=== PATIENT | male | born 1965 | race Caucasian/White ===

== ENCOUNTER 2017-05-08 19:03 | Emergency (ER) | payer MEDICARE ==
[~2017-05-08] VITALS: Ht 170.2 cm; Wt 55.3 kg
[~2017-05-08 19:03] MED LIST: AMITRIPTYLINE H25 M2 PO; ATIVAN0.5 MG PO; CARAFATE 1 GM TA1 G1 PO; CYMBALTA60 MG PO; DIFLUCAN200 MG PO; DILAUDID 2 MG TA2 MG PO; ERYTHROMYCIN250 M1 PO; ERYTHROMYCIN250 MG PO; FENTANYL PA25 MCG/HR TRANSDERM; FLAGYL500 MG PO; GAS-X125 MG PO; METOCLOPRAMID5 MG/ML PO; MIRALAX17 GM PO; NORVASC5 MG PO; OMEPRAZOLE20 M2 PO; ONDANSETRON HCL4 M2 PO; OXYBUTYNIN 5 MG5 M2 PO; OXYCODONE HCL 55 MG PO; OXYCONTIN40 MG PO; PANCREAZE 10,51 EACH PO; PHENADOZ12.5 MG RC; PHENERGAN 25 MG25 M1 PO; PHENERGAN12.5 M2 RECTAL; POTASSIUM 25 M25 MEQ PO; PROTONIX40 M1 PO; SENNA PLUS TAB1 EACH PO; SUPER ENZYME C1 EACH PO; TRAMADOL 50 MG50 MG PO; TRANSDERM-SCO1 PATC1 TD; TRANSDERM-SCO1 PATC1 TRANSDERM; TYLENOL325 MG PO; VENLAFAXIN37.5 MG/1 PO; ZOFRAN ODT4 MG PO; ZOLOFT50 MG PO; ZOLPIDEM TARTRA10 MG PO; [UNRECOGNIZED DRUG - OTHER] PO
[2017-05-08] MEDS ORDERED: OXYCONTIN20 M1 PO (19:13)
[2017-05-08 20:30] VITALS: BP 134/67
[2017-11-03] MEDS ORDERED: OMEPRAZOLE40 MG PO (09:53)
[2017-11-03] MEDS ORDERED: ZANTAC 150MG T150 MG PO (09:55)
[2017-11-03] MEDS ORDERED: REMERON15 MG PO (09:55)
== END 2017-05-08 20:31 | disposition home or self-care (01) ==
LOC: M.ERS 19:03
DX: S93.401A Sprain of unspecified ligament of right ankle, initial encounter (principal); I10 Essential (primary) hypertension; Z88.8 Allergy status to other drugs, medicaments and biological substances; Z85.07 Personal history of malignant neoplasm of pancreas; W11.XXXA Fall on and from ladder, initial encounter; Y93.89 Activity, other specified; Y92.89 Other specified places as the place of occurrence of the external cause; Y99.8 Other external cause status

== ENCOUNTER 2017-07-29 17:59 | Emergency (ER) | payer MEDICARE ==
[~2017-07-29] VITALS: Ht 167.6 cm; Wt 51.3 kg
[~2017-07-29 17:59] MED LIST changes: +OXYCONTIN20 M1 PO
[2017-07-29] MEDS ORDERED: LEXAPRO20 MG PO (18:07)
[2017-07-29] MEDS ORDERED: CREON DR 12,001 EACH PO (18:07)
[2017-07-29] MEDS ORDERED: FLEXERIL PO (18:07)
[2017-07-29 18:52] VITALS: BP 107/73
[2017-11-03] MEDS ORDERED: OMEPRAZOLE40 MG PO (09:53)
[2017-11-03] MEDS ORDERED: REMERON15 MG PO (09:55)
[2017-11-03] MEDS ORDERED: ZANTAC 150MG T150 MG PO (09:55)
== END 2017-07-29 18:53 | disposition home or self-care (01) ==
LOC: M.ERS 17:59
DX: S51.811A Laceration without foreign body of right forearm, initial encounter (principal); I10 Essential (primary) hypertension; Z86.19 Personal history of other infectious and parasitic diseases; Z85.07 Personal history of malignant neoplasm of pancreas; Z88.5 Allergy status to narcotic agent; Z88.8 Allergy status to other drugs, medicaments and biological substances; W22.8XXA Striking against or struck by other objects, initial encounter; Y93.89 Activity, other specified; Y92.89 Other specified places as the place of occurrence of the external cause; Y99.8 Other external cause status

== ENCOUNTER 2017-08-20 09:15 | Inpatient (IN) | payer MEDICARE ==
[~2017-08-20] VITALS: Ht 167.6 cm; Wt 51.3 kg
[~2017-08-20 09:15] MED LIST changes: +CREON DR 12,001 EACH PO; +FLEXERIL PO; +LEXAPRO20 MG PO
[2017-08-20 09:22] VITALS: BP 150/89
[2017-08-20] MEDS ORDERED: CALCIUM CIT 201 EACH PO (09:26)
[2017-08-20] MEDS ORDERED: POTASSIUM GLUCO99 M1 PO (09:27)
[2017-08-20 09:32] LABS: URINE BILIRUBIN NEGATIVE (Negative); URINE BLOOD NEGATIVE (Negative); URINE CLARITY CLEAR; URINE COLOR YELLOW; URINE GLUCOSE-RANDOM NEGATIVE (Negative); URINE KETONES 1+ (Negative); URINE LEUKOCYTES-REFLEX NEGATIVE (Negative); URINE NITRITE-REFLEX NEGATIVE (Negative); URINE PROTEIN TRACE (Negative); URINE UROBILINOGEN 0.2 E.U./dl (0.2-1.0)
[2017-08-20 09:37] LABS: HEMATOCRIT 41.4 % (42.0-52.0); MCH 30.4 pg (26.0-34.0); MCHC 33.7 g/dL (28.0-37.0); NUCLEATED RBCS 0 /100WBC; PLATELET COUNT* 152 thou/uL (150-400); RBC 4.61 mil/uL (4.50-6.00); WBC 10.4 thou/uL (4.0-11.0)
[2017-08-20 09:41] LABS: ANION GAP 13 mmol/L (7-16); BUN 11 mg/dL (7-18); CALCIUM 9.1 mg/dL (8.5-10.1); CHLORIDE 99 mmol/L (98-107); CO2 26 mmol/L (21-32); CREATININE 1.3 mg/dL (0.6-1.3); GLUCOSE 140 mg/dL (70-99); POTASSIUM 3.7 mmol/L (3.5-5.1); SODIUM 138 mmol/L (136-145)
[2017-08-20 09:48] LABS: ALBUMIN 3.8 g/dL (3.4-5.0); ALKALINE PHOSPHATASE 249 U/L (46-116); LIPASE 31 U/L (73-393); SGOT 347 U/L (15-37); SGPT 166 U/L (30-65); TOTAL BILIRUBIN 1.3 mg/dL (<0.1-1.0); TOTAL PROTEIN 8.3 g/dL (6.4-8.2); TROPONIN-I LEVEL <0.06 ng/mL (<0.06)
[2017-08-20 10:05] LABS: ABSOLUTE LYMPHOCYTES 0.9 thou/uL (0.8-5.3); ABSOLUTE MONOCYTES 0.1 thou/uL (0.0-1.2); ABSOLUTE NEUTROPHILS 9.4 thou/uL (1.6-8.1)
[2017-08-20 10:06] LABS: MACROCYTES Occasional; PLATELET ESTIMATE ADEQUATE
[2017-08-20 13:03] VITALS: BP 145/99
[2017-08-20 13:59] VITALS: BP 145/99
--- NOTE | 2017-08-20 16:14 | EKG ---
[place] [address] ELECTROCARDIOGRAM REPORT Name: PETER CARRILLO Room: [place] [address] ADM IN [facility].#: [id number] Admission: 08/20/17 Attend Phys: Checo Zaman, Discharge: Date of : 69 Report #: [id number] THIS REPORT FOR: //name// [facility] ED Test Date: 2017-08-20 Test Time: 09:27:22 Pat Name: PETER CARRILLO Department: Room: Gender: Home Care Administrator: Rayna CAMARA : 1965 Requested By: Festus Hendricks Order Number: [id number] MD: Jhoan Giron Measurements Intervals [place] Rate: 86 P: -77 WV: 100 QRS: 88 QRSD: 92 T: 55 QT: 381 QTc: 456 Interpretive Statements Ectopic atrial rhythm Short WV interval Compared to ECG 12/22/2015 19:47:03 Left ventricular hypertrophy no longer present Electronically Signed On 08-20-2017 16:14:45 CDT by Jhoan Giron [email or web address] <ELECTRONICALLY SIGNED> By: Jhoan Giron MD, [facility] 08/20/17 1614 0927 6 Jhoan Giron MD, [facility] /EPI
[2017-08-20 20:14] VITALS: BP 132/93
[2017-08-21] VITALS: BP 150/79
[2017-08-21 04:00] VITALS: BP 145/85
[2017-08-21 05:05] LABS: HEMATOCRIT 37.1 % (42.0-52.0); HEMOGLOBIN 12.5 gm/dL (14.0-18.0); MCH 30.1 pg (26.0-34.0); MCHC 33.7 g/dL (28.0-37.0); MCV 89.3 fL (80.0-100.0); MPV 9.4 fl. (7.2-11.1); RBC 4.15 mil/uL (4.50-6.00); RDW-CV 16.1 % (10.5-14.5); WBC 9.3 thou/uL (4.0-11.0)
[2017-08-21 05:57] LABS: ALBUMIN 2.9 g/dL (3.4-5.0); CALCIUM 8.1 mg/dL (8.5-10.1); MAGNESIUM 1.8 mg/dL (1.8-2.4); POTASSIUM 4.1 mmol/L (3.5-5.1); TOTAL BILIRUBIN 1.1 mg/dL (<0.1-1.0); TOTAL PROTEIN 6.4 g/dL (6.4-8.2)
[2017-08-21 08:00] VITALS: BP 138/93
[2017-08-21 12:55] VITALS: BP 160/107
[2017-08-21 16:34] VITALS: BP 170/109
[2017-08-21 20:30] VITALS: BP 161/97
[2017-08-22] VITALS: BP 135/97
[2017-08-22 04:05] VITALS: BP 144/81
[2017-08-22 08:00] VITALS: BP 145/91
[2017-08-22 11:38] VITALS: BP 157/94
[2017-08-22 16:09] LABS: HEPATITIS B SURFACE AG Negative (Negative)
[2017-08-22 16:34] VITALS: BP 165/90
[2017-08-22 20:00] VITALS: BP 159/89
[2017-08-23] VITALS: BP 145/84
[2017-08-23 04:00] VITALS: BP 148/83
[2017-08-23 07:30] VITALS: BP 139/79
[2017-08-23] MEDS ORDERED: LISINOPRIL20 MG PO (11:05)
[2017-08-23] MEDS ORDERED: CIPRO500 MG PO (11:05)
[2017-08-23 11:51] VITALS: BP 147/92
[2017-08-23 12:53] VITALS: BP 147/92
[2017-11-03] MEDS ORDERED: OMEPRAZOLE40 MG PO (09:53)
[2017-11-03] MEDS ORDERED: ZANTAC 150MG T150 MG PO (09:55)
[2017-11-03] MEDS ORDERED: REMERON15 MG PO (09:55)
== END 2017-08-23 14:22 | disposition home or self-care (01) | DRG 372 ==
LOC: M.ERS 09:15 → M.TBA-ER 12:07 → M.2W 12:07
PROVIDERS: Emergency Medicine Emergency Medical Services; ADMIT Family Medicine
DX: A04.9 Bacterial intestinal infection, unspecified (principal); E44.1 Mild protein-calorie malnutrition; F17.210 Nicotine dependence, cigarettes, uncomplicated; I10 Essential (primary) hypertension; B19.20 Unspecified viral hepatitis C without hepatic coma; F41.9 Anxiety disorder, unspecified; R74.0 Nonspecific elevation of levels of transaminase and lactic acid dehydrogenase [LDH]; Z86.14 Personal history of Methicillin resistant Staphylococcus aureus infection; Z98.52 Vasectomy status; Z85.07 Personal history of malignant neoplasm of pancreas; Z79.899 Other long term (current) drug therapy; Z88.8 Allergy status to other drugs, medicaments and biological substances

== ENCOUNTER → 2017-09-23 | Outpatient (CLI) | payer MEDICARE ==
[~2017-09-23] MED LIST changes: +ASPIRIN325 PO; +CALCIUM CIT 201 EACH PO; +CIPRO500 MG PO; +LISINOPRIL20 MG PO; +OMEPRAZOLE40 MG PO; +OXYCODONE HCL10 MG PO; +POTASSIUM GLUCO99 M1 PO; +REGLAN 10 MG TA10 MG PO; +REMERON15 MG PO; +TAMIFLU30 MG PO; +VANCO 1 GR1 GM/250 M IV; +ZANTAC 150MG T150 MG PO
== END ==
LOC: M.NUC 09-20 07:30
DX: R10.9 Unspecified abdominal pain (principal); R11.2 Nausea with vomiting, unspecified; Z98.890 Other specified postprocedural states

== ENCOUNTER 2017-10-13 12:52 | Inpatient (IN) | payer MEDICARE ==
[~2017-10-13] VITALS: Ht 167.6 cm; Wt 53.1 kg
[~2017-10-13 12:52] MED LIST changes: -ASPIRIN325 PO; -OMEPRAZOLE40 MG PO; -OXYCODONE HCL10 MG PO; -REGLAN 10 MG TA10 MG PO; -REMERON15 MG PO; -TAMIFLU30 MG PO; -VANCO 1 GR1 GM/250 M IV; -ZANTAC 150MG T150 MG PO
[2017-10-13 13:14] VITALS: BP 163/89
[2017-10-13 13:31] LABS: ABSOLUTE BASOPHILS 0.1 thou/uL (0.0-0.2); ABSOLUTE EOSINOPHILS 0.2 thou/uL (0.0-0.7); ABSOLUTE LYMPHOCYTES 2.1 thou/uL (0.8-5.3); ABSOLUTE MONOCYTES 0.7 thou/uL (0.0-1.2); ABSOLUTE NEUTROPHILS 5.2 thou/uL (1.6-8.1); BASOPHILS 0.7 %; EOSINOPHILS 1.9 %; HEMATOCRIT 34.5 % (42.0-52.0); HEMOGLOBIN 11.6 gm/dL (14.0-18.0); LYMPHOCYTES 25.7 %; MCH 30.3 pg (26.0-34.0); MCHC 33.6 g/dL (28.0-37.0); MCV 90.1 fL (80.0-100.0); MONOCYTES 8.2 %; MPV 8.7 fl. (7.2-11.1); NUCLEATED RBCS 0 /100WBC; PLATELET COUNT* 197 thou/uL (150-400); POLYS 63.5 %; RBC 3.84 mil/uL (4.50-6.00); RDW-CV 15.3 % (10.5-14.5); WBC 8.2 thou/uL (4.0-11.0)
[2017-10-13 13:38] LABS: CALCIUM 8.5 mg/dL (8.5-10.1); CREATININE 1.2 mg/dL (0.6-1.3); POTASSIUM 4.2 mmol/L (3.5-5.1)
[2017-10-13 13:42] LABS: ALBUMIN 3.6 g/dL (3.4-5.0); TOTAL BILIRUBIN 0.3 mg/dL (<0.1-1.0); TOTAL PROTEIN 7.6 g/dL (6.4-8.2)
--- NOTE | 2017-10-13 14:00 | NUR ---
CONSCIOUS SEDATION FOR REDUCTION OF FRACTURE/DISLOCATION TO LEFT LEG. SEE PAPER DOCUMENTATION
--- NOTE | 2017-10-13 15:30 | NUR ---
CONSCIOUS SEDATION FOR REDUCTION OF FRACTURE/DISLOCATION TO LEFT LEG. SEE PAPER DOCUMENTATION
--- NOTE | 2017-10-13 17:37 | NUR ---
SEE PAPERCHARTING FOR VITALS
[2017-10-13 17:38] VITALS: BP 187/105
--- NOTE | 2017-10-13 18:04 | NUR ---
PATIENT ARRIVED ON THE UNIT AT 1745. ALERT AND ORIENTED X4. ADMISSION ASSESSMENT COMPLETED AND CHARTED. VSS ON ROOM AIR. PATIENT IS IN A LOT OF PAIN AND STATED THAT FENTANYL AND MORPHINE HAVE NOT HELPED THE PAIN. NO COMPLAINTS OF NAUSEA OR SOA. FLUIDS INFUSING FROM ED, WILL CHECK ORDERS TO START A NEW BAG. PATIENT AND ASKED FOR PHYSICIAN TO ADD HOME PAIN MEDICATION, OXYCONTIN, TO ALLEVIATE PAIN. WILL SEND A PAGE. CALL LIGHT WITHIN REACH, NURSING WILL CONTINUE TO MONITOR.
[2017-10-13 18:24] VITALS: BP 153/100
[2017-10-13 20:00] VITALS: BP 165/98
--- NOTE | 2017-10-14 04:35 | NUR ---
PATIENT REMAINS ALERT AND ORIENTED X4 THROUGHOUT SHIFT. VITAL SIGNS STABLE ON ROOM AIR. IV PATENT IN THE LEFT UPPER ARM INFUSING AT 100 ML/HR PER ORDERS. MAINTAINED NPO STATUS SINCE MIDNIGHT. PAIN MANAGED WITH PO AND IV PAIN MEDICATION. DENIES NAUSEA. RESTING COMFORTABLY THROUGHOUT THE NIGHT. PATIENT ENCOURAGED TO ELEVATE LEG THROUGHOUT SHIFT. USING URINAL. MAINTAINING BEDREST. REPOSITIONING SELF IN BED. HOURLY ROUNDING COMPLETE. NURSING WILL CONTINUE TO MONITOR.
--- NOTE | 2017-10-14 04:49 | NUR ---
LORAZEPAM WAS ON PATIENT MEDICATION LIST. NURSING SPOKE WITH PATIENT ABOUT ALLERGY. PATIENT STATED HE HAS HAD AN ALLERGIC REACTION IN THE PAST TO IV LORAZEPAM AND WOULD PREFER TO HOLD PO LORAZEPAM.
[2017-10-14 05:26] LABS: APTT 29.6 Seconds (25.0-31.3); INR 1.2; PROTIME 11.7 Seconds (9.20-11.50)
[2017-10-14 06:38] VITALS: BP 138/98
[2017-10-14 11:43] VITALS: BP 129/83
--- NOTE | 2017-10-14 14:00 | NUR ---
PT.HAD SURGERY THIS AM. DROWSY. ,RAMON, AT BEDSIDE. SHE ANSWERED MOST OF THE QUESTIONS. SHE SAID THEY HAVE 6 KIDS BUT 3 LIVE AT HOME WITH THEM. AGES-4,6,AND 16. THEY ARE ACTUALLY LIVING WITH PT.'S PARENTS AT THIS TIME, THEY ARE REMODELING THEIR HOME. THE HOUSE HAS 4 STEPS TO ENTER. THEY ARE STAYING IN A BEDROOM IN THE BASEMENT WHERE HE WILL NEED TO GO DOWN 12 STAIRS. THERE IS NO BATHROOM ON THAT FLOOR. DISCUSSED POSSIBILTY OF HIM STAYING ON MAIN FLOOR. HE DOES NOT USE ANY DME. HE DOES HAVE A PAIR OF CRUTCHES. RAMON BABYSITS IN THE HOME BUT ONLY HAS ONE BABY AT THIS TIME. PT.HAS HX OF PANCREATIC CANCER IN 2013 AND HAS BEEN IN REMISSION FOR 1 1/2 YEARS. DISCUSSED STARTING THERAPY PROBABLY TOMORROW. HE WILL BE NON WT.BEARING. TOLD PT.AND WE WOULD TALK ABOUT DISCHARGE PLANNING AFTER HE HAS SEVERAL THERAPY SESSIONS.
[2017-10-14 16:33] VITALS: BP 115/72
--- NOTE | 2017-10-14 17:25 | NUR ---
ALERT AND ORIENTED X4. IV IS PATENT AND INFUSING. PAIN IS BEING MANAGED WITH PO AND IV PAIN MEDICATION. DENIES NAUSEA. NWB STATUS HAS BEEN MAINTAINED. LLE ELEVATED AT ALL TIMES WHILE IN BED. EXTERNAL FIXATOR IN PLACE. EKG TAKEN THIS AFTERNOON THAT SHOWED ACUTE MA WITH ST ELEVATION. RN TOOK EKG OVER TO THE ER AND SHOWED IT TO THE ER DOCTOR. WHO THEN CONSULTED WITH DR. SHIPLEY IN CARDIOLOGY WHO STATED THAT IT WAS SHOWING BENIGN EARLY REPOLARIZATION AND DID NOT NEED TO BE MONITORED AT THIS TIME. NURSE SENT DR. ARLIN MURCIA TO BE AWARE OF WHAT OCCURED. PATIENT DENIES CHEST PAIN AND SOB. VSS ON ROOM AIR. CONTINUOUS PULSE OX IN PLACE. HOURLY ROUNDS HAVE BEEN MAINTAINED SINCE ARRIVING BACK TO UNIT. CALL LIGHT IS WITHIN REACH. NURSING WILL CONTINUE TO MONITOR.
--- NOTE | 2017-10-14 17:46 | EKG ---
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: : 1965 Requested By: Brian House Order Number: [id number] Gomez MD: Jhoan Giron Measurements Intervals [place] Rate: 81 P: 59 NH: 136 QRS: 59 QRSD: 95 T: 64 QT: 485 QTc: 563 Interpretive Statements Sinus rhythm nonspecific st changes Prolonged QT interval Compared to ECG 08/20/2017 09:27:22 Prolonged QT interval now present Ectopic atrial rhythm no longer present Short NH interval no longer present Electronically Signed On 10-14-2017 17:46:52 CDT by Jhoan Giron [email or web address] <ELECTRONICALLY SIGNED> By: Jhoan Giron MD, [facility] 10/14/17 1746 1617 1617 Jhoan Giron MD, [facility] /EPI
--- NOTE | 2017-10-14 17:48 | EKG ---
[place] [address] ELECTROCARDIOGRAM REPORT Name: PETER CARRILLO Room: [address] ADM IN .R.#: [id number] Admission: 10/13/17 Attend Phys: Brian House MD Discharge: Date of : 69 Report #: [id number] THIS REPORT FOR: //name// [facility] Test Date: 2017-10-14 Test Time: 16:21:36 Pat Name: PETER CARRILLO Department: Room: [address] Gender: M [place]: : 1965 Requested By: Brian House Order Number: [id number] Gomez MD: Jhoan Giron Measurements Intervals [place] Rate: 82 P: 77 [place]: 142 QRS: 63 QRSD: 91 T: 67 QT: 485 QTc: 567 Interpretive Statements Sinus rhythm with short pr interval Probable left atrial enlargement nonspecific st changes Prolonged QT interval Electronically Signed On 10-14-2017 17:48:08 CDT by Jhoan Giron [email or web address] <ELECTRONICALLY SIGNED> By: Jhoan Giron MD, [facility] 10/14/17 1748 1621 1621 Jhoan Giron MD, [facility] /EPI
[2017-10-14 20:00] VITALS: BP 131/86
[2017-10-14 23:59] VITALS: BP 116/68
--- NOTE | 2017-10-15 04:21 | NUR ---
PATIENT HAS REMAINED ALERT AND ORIENTED X 4 THROUGHOUT THE SHIFT AND RESTING QUIETLY ON HOURLY ROUNDS. PATIENT REPORTING MUCH IMPROVED PAIN MANAGEMENT TONIGHT WITH ORAL AND IV MEDS PROVIDED. SEE E-MAR. EXTERNAL FIXATOR LLE INTACT. NOTED MOD AMOUNT PINK BLEED THROUGH TO GAUZE WRAP. PAD TO ELEVATED PILLOW TO MONITOR. PEDAL PULSES PRESENT AND TOES REMAIN WARM AND MOBILE WITH SENSATION INTACT.NWB STATUS MAINTAINED. PATIENT TURNING SELF IN BED. VITAL SIGNS STABLE. CONTINUE TO MONITOR.
[2017-10-15 04:29] VITALS: BP 100/64
[2017-10-15 07:45] VITALS: BP 113/77
--- NOTE | 2017-10-15 15:26 | NUR ---
PER THERAPY, PT.DID WELL AND DID STAIRS. HE IS GOOD TO GO FROM THEIR STANDPOINT. POSSIBLY TOMORROW. PT. WILL NEED A FWW FOR HOME USE. RECEIVED OK FROM VITO/YESI PEPE. ORDER FAXED TO HER AT [phone]. GAVE ORDER TO ANGELICA/Moon. SHE WILL HAVE THERAPIST DISPENSE A FWW IN AM IF PT.IS DISCHARGED. INFORMED PT.AND . DISCUSSED HOME HEALTH. THEY DECLINED. SAID PT.HAS APPT.WITH ON WEDNESDAY. PT.IS GOING TO STAY IN A BEDROOM ON MAIN LEVEL OF PARENTS HOME.
[2017-10-15 15:38] VITALS: BP 113/77
[2017-10-15 15:41] VITALS: BP 120/78
--- NOTE | 2017-10-15 17:26 | NUR ---
ALERT AND ORIENTED X4. UP WITH ASSIST X1 WITH WALKER AND GAIT BELT. NWB MAINTAINED THROUGHOUT SHIFT. PAIN BEING MANAGED WITH PO AND IV MEDICATION. DENIES NAUSEA. IV IS PATENT AND SALINE LOCKED. ATTENDED PHYSICAL THERAPY THIS EVENING. TOLERATING DIET. VSS ON ROOM AIR. HOURLY ROUNDS HAVE BEEN MAINTAINED THROUGHOUT SHIFT. CALL LIGHT IS WITHIN REACH. NURSING WILL CONTINUE TO MONITOR.
[2017-10-15] MEDS ORDERED: REGLAN 10 MG TA10 MG PO (18:16)
[2017-10-15 20:00] VITALS: BP 109/80
[2017-10-16 00:30] VITALS: BP 124/84
[2017-10-16 04:43] VITALS: BP 127/86
[2017-10-16 04:46] LABS: HEMATOCRIT 25.7 % (42.0-52.0); MCH 30.8 pg (26.0-34.0); MCHC 34.1 g/dL (28.0-37.0); MCV 90.4 fL (80.0-100.0); MPV 9.1 fl. (7.2-11.1); RBC 2.85 mil/uL (4.50-6.00); RDW-CV 15.7 % (10.5-14.5); WBC 5.9 thou/uL (4.0-11.0)
[2017-10-16 04:49] LABS: HEMOGLOBIN 8.8 gm/dL (14.0-18.0)
--- NOTE | 2017-10-16 05:19 | NUR ---
PATIENT HAS REMAINED ALERT AND ORIENTED X 4 THROUGHOUT THE SHIFT AND RESTING QUIETLY ON HOURLY ROUNDS. UP TO BR WITH GAIT BELT AND WALKER, CGA. PATIENT ABLE TO MAINTAIN NWB STATUS LLE WITH STEADY AND SAFE GAIT/TECHNIQUE. VOIDING ADEQUATELY. BM OVERNIGHT. CONTINUES TO UTILIZE BOTH ORAL AND IV PAIN MEDICATION, BUT, ACHIEVING VERY GOOD PAIN MANAGEMENT. SEEPAGE OF PINK DRAINAGE AT PROXIMAL END OF LLE EXTERNAL FIXATOR. LLE ELEVATED WITH 2 PILLOWS. VITAL SIGNS STABLE. CONTINUE TO MONITOR.
[2017-10-16 05:25] LABS: ANION GAP < 0 mmol/L (7-16); BUN 8 mg/dL (7-18); CALCIUM 8.5 mg/dL (8.5-10.1); CHLORIDE 102 mmol/L (98-107); CO2 34 mmol/L (21-32); GLUCOSE 115 mg/dL (70-99); MAGNESIUM 1.8 mg/dL (1.8-2.4); POTASSIUM 4.7 mmol/L (3.5-5.1); SODIUM 135 mmol/L (136-145)
[2017-10-16 09:33] VITALS: BP 140/98
[2017-10-16 15:44] VITALS: BP 137/88
--- NOTE | 2017-10-16 18:13 | NUR ---
ASSUMED CARE OF PATIENT AFTER MORNING REPORT AT APPROX 0720. ALERT AND ORIENTED X4. ASSESSMENT COMPLETED AND CHARTED. VSS ON ROOM AIR. PATIENT HAS COMPLAINTS OF NAUSEA AND PAIN. NAUSEA MANAGED WITH IV MEDICATION. PAIN MEDICATIN SWITCHED TO ORAL ONLY PER DR MAGALLANES. UPON EXAMINATION THIS NURSE NOTICED THAT THE WRONG HOME PAIN MEDICATION WAS ON THE MAY, CALLED DR MAGALLANES AND THIS HAS BEEN FIXED. PATIENTS DRESSING REMOVED, WOUNDS AND PINS CLEANED, REDRESSED WITH VASELINE GAUZE, ABD, AND GAUZE WRAP PER ORDERS. HOURLY ROUNDS HAVE BEEN MAINTAINED, CALL LIGHT IS WITHIN REACH, NURSING WILL CONTINUE TO MONITOR.
[2017-10-17] VITALS: BP 136/87
[2017-10-17 03:44] VITALS: BP 125/77
--- NOTE | 2017-10-17 05:50 | NUR ---
UP WITH STAND BY ASSIST TO BATHROOM WITH WALKER AND GAIT BELT. REMAINS NONWEIGHTBEARING TO LEFT LOWER EXTREMITY. LEFT TOES WARM AND PINK WITH GOOD CAPILLARY REFILL. EXTERNAL FIXATION DEVICE REMAINS INTACT ON LEFT LOWER LEG. LEFT LEG ELEVATED ON PILLOW. PATIENT USING PO PAIN MEDICATION TO HELP WITH PAIN. CALL LIGHT WITHIN REACH.
[2017-10-17 10:06] VITALS: BP 113/77
[2017-10-17] MEDS ORDERED: OXYCODONE HCL10 MG PO (15:28)
--- NOTE | 2017-10-17 17:07 | NUR ---
ASSUMED CARE OF PATIENT AFTER MORNING REPORT AT APPROX 0720. ALERT AND ORIENTED X4. ASSESSMENT COMPLETED AND CHARTED. VSS ON ROOM AIR. PAIN HAS BEEN MANAGED WITH ORAL PAIN MEDICATION. NO COMPLAINTS OF NAUSEA OR SOA THIS SHIFT. PATIENTS DRESSING REMOVED, PINS CLEANED, VASEINE AND XEROFORM GAUZE CHANGED OUT, WRAPPED WITH ROLLED GAUZE. THIS NURSE EDUCATED PATIENTS SPOUSE AND HAD HER PARTICIPATE IN DRESSING CHANGE SO SHE CAN CONTINUE THESE CARES AT HOME. PATIENT GIVEN WALKER AT DISCHARGE. PATIENT DISCHARGED AT 1655, ALL PERSONAL BELONGINGS, DISCHARGE INSTRUCTIONS AND PRECRIPTIONS SENT WITH PATIENT.
[2017-11-03] MEDS ORDERED: OMEPRAZOLE40 MG PO (09:53)
[2017-11-03] MEDS ORDERED: REMERON15 MG PO (09:55)
[2017-11-03] MEDS ORDERED: ZANTAC 150MG T150 MG PO (09:55)
--- NOTE | 2017-11-09 11:04 | OP ---
[address] [address] OPERATIVE REPORT Name: PETER CARRILLO Room: [address] IN .R.#: [id number] Admission: 10/13/17 Attend Phys: Brian House MD Discharge: 10/17/17 Date of : 69 Report #: [id number] THIS REPORT FOR: //name// CC: Constance House PREOPERATIVE DIAGNOSIS: Left tibial pilon fracture, comminuted, closed and displaced with distal fibular fracture, closed and displaced. POSTOPERATIVE DIAGNOSIS: Left tibial pilon fracture, comminuted, closed and displaced with distal fibular fracture, closed and displaced. PROCEDURE: 1. External fixation of left comminuted and displaced tibial pilon fracture with distal fibular fracture. 2. Physician directed fluoroscopy less than 1 hour. SURGEON: Brian Sharma DO DATASTAGE DEVELOPER: Hesham Horowitz DO ANESTHESIA: General. ANTIBIOTICS: Ancef IV preoperatively. BLOOD LOSS: 5 mL. FLUIDS: 850 mL of lactated Ringer's. COMPLICATIONS: None. SPECIMENS: None. DRAINS: None. CONDITION OF PATIENT: Stable to PACU. IMPLANTS: [place] delta frame external fixation, two pins within the tibia and one pin within the calcaneus. INDICATIONS FOR PROCEDURE: The patient is a 52-year-old male. He fell off of a ladder sustaining a pilon fracture. My partner, Dr. Mcdonald closed reduced this in the Emergency Department and contacted me in regards to care for this patient. I had a long conversation with him and his today regarding the recommendation for external fixation and that this is a very significant injury that likely will lead to decreased function. 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 Ever since his whipple surgery he [address] [place] [address] OPERATIVE REPORT Name: PETER CARRILLO Room: [address] IN [facility].#: [id number] Admission: 10/13/17 Attend Phys: Brian House MD Discharge: 10/17/17 Date of : 69 Report #: [id number] cannot work more than a day or two in a row without being significantly sick I discussed with them there will be quite a long time before he will be able to get back to this type of work and that he may never return to that type of work due to the nature of this injury, it is potentially limb threatening and could ultimately lead to amputation if there becomes wound complications, infection, malunions or nonunions. I informed them that his tobacco use significantly increases his risks above baseline for all complications. Especially infection, wound issues, malunion, nonunion, need for further surgery including amputation. I went over with him the risks and complications involved with external fixation today as well as the plan of conversion of external fixation to operative fixation with the possibility that this may never be able to be operatively fixated with internal fixation and may require alf external fixation. After addressing any question they had, they acknowledged and accepted those risks, stated that they understood how they were presented and appreciated my time and detailed explanation of them. We obtained his verbal and written consent to proceed. DESCRIPTION OF PROCEDURE: I marked the left lower extremity in the presence of the operative team members and then he was taken back to the operative suite where a briefing was performed indicating correct patient, procedure, site and antibiotics were given and implants needed were present. All team members agreed. He was given general anesthetic and then transferred over to the operative table in the supine position, well-padded and secured. A well-padded tourniquet was placed proximally on the left lower extremity and at no point in time was this insufflated. The left lower extremity was sterilely prepped and draped in standard fashion and timeout performed indicating correct patient, procedure, site, antibiotics and that implants were present and sterile. All team members agreed. It should be noted that upon taking down the splint, he had significant fracture blisters. These were along the anterior and medial with the medial being quite significant extending up along the anterior where they were significant as well. These were hemorrhagic fracture blisters, overall stable. We brought in the C-arm to dominick where our fracture site ended and made sure that we would be placing our external fixation sufficiently proximally now, so that we should be able to avoid cross contamination with internal fixation. We made incisions just medial to the crest and then placed two pins just medial to the crest. We first predrilled and then placed the pins, confirmed that they were in appropriate position and length on both AP and lateral images and saved those. We then turned our attention to the heel. We were able to avoid the blisters and placed our calcaneal pin by making an incision medially and then the pin was advanced laterally, made a dawna on the skin prior to the pin coming out the skin laterally, saved images showing appropriate position of the pin. At this point in time, we then assembled our delta frame with bars both medial and lateral and clamps. We pulled traction and lined up our fracture in AP and lateral planes and checked on multiple images and confirmed that we were out to length. Once we had confirmed this, we then tightened down all the clamps, final tightened them, [place] [address] OPERATIVE REPORT Name: PETER CARRILLO Room: [address] IN [facility]#: [id number] Admission: 10/13/17 Attend Phys: Brian House MD Discharge: 10/17/17 Date of : 69 Report #: [id number] by lifting up the leg and then obtaining images with the leg being held up, our fracture was out to length. We restored length, alignment and rotation. We sterilely dressed with Xeroform gauze for the blisters as well as over the pin sites. Pin site care will begin with daily care per orders. We performed a debriefing where we confirmed the procedure, blood loss and that all counts were correct and final. All team members agreed. He was successfully extubated and transferred off the operative table and taken to PACU in stable condition. POSTOPERATIVE COURSE AND EVALUATION: I spoke with his , answered any questions she had, she thanked me for time and efforts. He was resting in PACU, neurovascularly intact distally in that extremity. Compartments overall were soft and appropriately tender for his injury. Dressing clean and intact. He will be admitted, nonweightbearing, pin site care to begin. We will also be obtaining a CT scan now that he is within the external fixator. We will be seeing him in clinic in followup to check skin and look for surgical readiness. I am leaving town today and not returning until next week. I have personally discussed this case with my partners who will be covering for me. I am immediately available by phone. <ELECTRONICALLY SIGNED> By: Brian Sharma DO 11/09/17 1104 1810 0048Jadeepa Sharma DO /nt
== END 2017-10-17 16:55 | disposition home or self-care (01) | DRG 493 ==
LOC: M.ERS 12:52 → M.TBA-ER 15:10 → M.ORTHSURG 15:10
PROVIDERS: Family Medicine; ADMIT Internal Medicine
DX: S82.872A Displaced pilon fracture of left tibia, initial encounter for closed fracture (principal); E44.0 Moderate protein-calorie malnutrition; Z68.1 Body mass index [BMI] 19.9 or less, adult; S82.452A Displaced comminuted fracture of shaft of left fibula, initial encounter for closed fracture; S70.212A Abrasion, left hip, initial encounter; F17.210 Nicotine dependence, cigarettes, uncomplicated; Z85.07 Personal history of malignant neoplasm of pancreas; F32.9 Major depressive disorder, single episode, unspecified; G89.29 Other chronic pain; I10 Essential (primary) hypertension; W11.XXXA Fall on and from ladder, initial encounter; Z79.2 Long term (current) use of antibiotics; Z86.14 Personal history of Methicillin resistant Staphylococcus aureus infection; Z79.82 Long term (current) use of aspirin; Z79.899 Other long term (current) drug therapy; Z88.6 Allergy status to analgesic agent; Z98.52 Vasectomy status; Z86.19 Personal history of other infectious and parasitic diseases; Y93.89 Activity, other specified; Y92.89 Other specified places as the place of occurrence of the external cause; Y99.8 Other external cause status; Z80.6 Family history of leukemia; Z80.8 Family history of malignant neoplasm of other organs or systems

== ENCOUNTER → 2017-11-02 | Outpatient (CLI) | payer MEDICARE ==
[~2017-11-02] MED LIST changes: +ASPIRIN325 PO; +OMEPRAZOLE40 MG PO; +OXYCODONE HCL10 MG PO; +REGLAN 10 MG TA10 MG PO; +REMERON15 MG PO; +TAMIFLU30 MG PO; +VANCO 1 GR1 GM/250 M IV; +ZANTAC 150MG T150 MG PO
[2017-11-02 12:57] LABS: ABSOLUTE EOSINOPHILS 0.2 thou/uL (0.0-0.7); ABSOLUTE LYMPHOCYTES 1.5 thou/uL (0.8-5.3); ABSOLUTE MONOCYTES 0.6 thou/uL (0.0-1.2); ABSOLUTE NEUTROPHILS 5.4 thou/uL (1.6-8.1); BASOPHILS 0.6 %; EOSINOPHILS 2.5 %; HEMATOCRIT 31.8 % (42.0-52.0); HEMOGLOBIN 10.4 gm/dL (14.0-18.0); LYMPHOCYTES 19.8 %; MCH 29.6 pg (26.0-34.0); MCHC 32.7 g/dL (28.0-37.0); MCV 90.3 fL (80.0-100.0); MONOCYTES 7.5 %; MPV 7.8 fl. (7.2-11.1); NUCLEATED RBCS 0 /100WBC; PLATELET COUNT* 296 thou/uL (150-400); POLYS 69.6 %; RBC 3.52 mil/uL (4.50-6.00); RDW-CV 15.3 % (10.5-14.5); WBC 7.8 thou/uL (4.0-11.0)
[2017-11-02 21:02] LABS: CALCIUM 8.6 mg/dL (8.5-10.1); CREATININE 1.1 mg/dL (0.6-1.3); POTASSIUM 4.3 mmol/L (3.5-5.1); TOTAL BILIRUBIN 0.3 mg/dL (<0.1-1.0); TOTAL PROTEIN 7.4 g/dL (6.4-8.2)
[2017-11-02 21:07] LABS: eGFR IF AFRICAN AMERICAN 117 (>59)
[2017-11-03 10:12] LABS: PARATHYROID HORMONE 24 pg/mL (15-65)
== END ==
LOC: M.LAB 12:21
PROVIDERS: Orthopaedic Surgery
DX: S82.252D Displaced comminuted fracture of shaft of left tibia, subsequent encounter for closed fracture with routine healing (principal); I10 Essential (primary) hypertension; X58.XXXD Exposure to other specified factors, subsequent encounter; Z79.899 Other long term (current) drug therapy

== ENCOUNTER 2017-11-09 06:11 | Inpatient (IN) | payer MEDICARE ==
[~2017-11-09] VITALS: Ht 167.6 cm; Wt 53.1 kg
[~2017-11-09 06:11] MED LIST changes: -ASPIRIN325 PO; -TAMIFLU30 MG PO; -VANCO 1 GR1 GM/250 M IV
[2017-11-09 06:30] VITALS: BP 128/87
[2017-11-09 06:44] LABS: APTT 31.8 Seconds (25.0-31.3); PROTIME 10.7 Seconds (9.20-11.50)
[2017-11-09 11:04] LABS: HEMATOCRIT 26.5 % (42.0-52.0); HEMOGLOBIN 8.8 gm/dL (14.0-18.0); MCH 29.7 pg (26.0-34.0); MCHC 33.1 g/dL (28.0-37.0); MCV 89.8 fL (80.0-100.0); MPV 7.9 fl. (7.2-11.1); RBC 2.95 mil/uL (4.50-6.00); RDW-CV 15.2 % (10.5-14.5); WBC 6.3 thou/uL (4.0-11.0)
[2017-11-09 11:09] LABS: CALCIUM 8.3 mg/dL (8.5-10.1); POTASSIUM 4.6 mmol/L (3.5-5.1)
[2017-11-09 11:15] VITALS: BP 110/74
[2017-11-09 16:00] VITALS: BP 105/68
--- NOTE | 2017-11-09 16:05 | NUR ---
PATIENT ADMITTED FROM PACU TO ROOM 110. ALERT AND ORIENTED. PATIENT GIVEN PRN PERCOCET FOR LEFT ANKLE PAIN, OXY IR FOR BREAKTHROUGH. IV SL, SCHED VANC TO INFUSE THIS EVENING. CAPNO IN PLACE, 02 SAT 96% RA. CAST NOTED TO LEFT LEG, ELEVATED ON PILLOWS. FALL RISK PROTOCOL IN PLACE. CALL LIGHT WITHIN REACH.
[2017-11-09 19:30] VITALS: BP 129/86
[2017-11-10 00:14] VITALS: BP 109/73
[2017-11-10 04:18] VITALS: BP 116/77
--- NOTE | 2017-11-10 05:02 | NUR ---
ASSESSMENT COMPLETE. PT SLEPT MOST OF THE NIGHT. PT GIVEN PRN PAIN MEDICATION NEEDED. PT HAS CAPNO OVERNIGHT WITH 2L PER NC. PT USES URINAL NEEDED. PT GIVEN IV VANC SCHEDULED. PT HAS IV, SALINE LOCKED AT THIS TIME. JAMI CRAIG AND SCD TO RIGHT LEG. SEE ASSESSMENT AND VITALS FOR OTHER DETAILS. CALL LIGHT WITHIN REACH, WILL CONTINUE PLAN OF CARE
[2017-11-10 07:30] VITALS: BP 131/69
[2017-11-10 11:20] VITALS: BP 138/87
--- NOTE | 2017-11-10 12:31 | CON ---
[address] [address] CONSULTATION Name: PETER CARRILLO Room: [address] IN M.R.#: [id number] Admission: 11/09/17 Attend Phys: Lee Haynes Discharge: Date of : 69 Report #: [id number] THIS REPORT FOR: //name// CC: Constance Leslie DATE OF SERVICE: 11/09/2017 INFECTIOUS DISEASE CONSULTATION ATTENDING PHYSICIAN: Brian Sharma DO. REASON FOR EVALUATION: Suspected surgical site infection, left ankle fracture with stabilization via external fixator, specifically bilateral. There is both medial and lateral involvement of increasing inflammation with purulence. HISTORY OF PRESENT ILLNESS: Chart reviewed, the patient examined. This is a 52-year-old with history of pancreatic cancer. He has been through extensive treatment for that; apparently is, at this point, cancer free. He is on no additional chemotherapy. He had sustained a complex distal left lower extremity fracture of both the tibia and fibula and has required internal fixators roughly 3 weeks ago. Postoperatively, he had been seen on a regular basis. He was noted to have some increasing inflammation. He was started on antibiotics; however, on return, he was found to have no purulence, both medial and lateral, at the calcaneal pin site. This was felt to be tissue infection. He underwent operative removal and has been hospitalized for ongoing treatment including parenteral antimicrobial therapy. He does have pain associated with it. It is not clear if he has had significant recent fevers. No gastrointestinal-related complaints nor has there been issue with significant anorexia. He was empirically started on vancomycin. ALLERGIES: LISTED TO ATIVAN WELL VICODIN. CURRENT MEDICATIONS: Include oxycodone, lorazepam, cyclobenzaprine, vancomycin, aspirin, mirtazapine, pantoprazole, lisinopril, citalopram and cholecalciferol. PAST MEDICAL HISTORY: As described above, pancreatic cancer diagnosed in 2013, underwent operative procedure with a Whipple approach; history of hypertension; history of hepatitis C; has got issues with gastric obstructions. He has had anxiety and depression as well. SOCIAL HISTORY: He smokes a pack a day, [id number] total history of cigarettes. Uses marijuana at times. No ethanol. FAMILY HISTORY: [place] [address] CONSULTATION Name: PETER CARRILLO Room: [address]#: [id number] Admission: 11/09/17 Attend Phys: Lee Haynes Discharge: Date of : 69 Report #: [id number] REVIEW OF SYSTEMS: As above. Denies significant pulmonary-related complaints. PHYSICAL EXAMINATION: GENERAL: He appears chronically ill, undernourished. He is pleasant and cooperative. He has in nmoh-ug-yuvtvmil distress at this point. He is not encephalopathic. VITAL SIGNS: Temperature 97.7, pulse 79, respirations 14 and blood pressure 110/74. SKIN: Warm, dry. No rashes. HEENT: Otherwise, unremarkable. NECK: Supple. LUNGS: Show clear breath sounds. HEART: Regular. I do not appreciate any murmur. ABDOMEN: Soft, nontender and nondistended. EXTREMITIES: Left lower extremity has a cast in place to below the knee. Toes are warm. GENITOURINARY: Deferred. RECTAL: Deferred. LABORATORY DATA: Sed rate of 95. Venous Doppler of lower extremities showed no evidence of deep venous thrombosis. CBC: White count of 6.3, H and H 8.8 and 26.5 and platelets of 174,000. Electrolytes: Sodium 135, potassium 4.6, chloride 101, bicarbonate is 31 and BUN and creatinine 13 and 1.0. ASSESSMENT AND PLAN: Complicated left distal lower extremity fracture with instrumentation and placement of external fixator, appears to be secondarily infected at this point. I agree with empiric antimicrobial Bactrim including coverage for Staph and strep, which are typically unlikely pathogen in this setting. has been removed. I did discuss with Dr. Sharma. We will plan on roughly 6 weeks of therapy and the presumptive acute osteomyelitis and see how he does clinically. Dr. Sharma did confirm that there is some instability related to the fracture site as well at this point. Thank you. We will follow. <ELECTRONICALLY SIGNED> By: Paulino Monson MD 11/10/17 1231 1250 [id number] Monson MD /nt
[2017-11-10 15:49] VITALS: BP 133/78
--- NOTE | 2017-11-10 16:12 | NUR ---
PATIENT GIVEN PRN MORPHINE AND PERCOCET THIS SHIFT FOR PAIN, GOOD RELIEF NOTED. IV SL, SCHED VANC TO INFUSE PER MAR ORDERS THIS EVENING. VANC TROUGH TO BE DRAWN AT 1830. PATIENT AWARE OF LAB WORK. UP TO BSC THIS AM, BM NOTED. PATIENT USING URINAL, VOIDING ADEQUATE AMOUNTS. PICC LINE ORDERED PER ID, LINE BEING PLACED AT BEDSIDE AT THIS TIME.
--- NOTE | 2017-11-10 16:53 | NUR ---
RIGHT BASDILIC VESSEL ACCESSED FOR 4 ANGOLAN PICC. LINE PRE-TRIMMED TO 37 CM AND ADVANCED TO THE ZERO RYLIE WITH NO RESISTANCE MET. UPPER ARM CIRCUMFERENCE ABOVE INSERTION SITE= 9 1/2". SHERLOCK AND 3CG CONFIRMATION OF TIP TERMINATION AT THE CAVO-ATRIAL JUNCTION. GOOD BRISK BLOOD RETURN, LINE FLUSHED WITH EASE. STYLET REMOVED, INSERTION SITE DRESSED, REPORT GIVEN TO VITO HALEY.
[2017-11-11] VITALS: BP 132/80
[2017-11-11 05:14] LABS: ABSOLUTE BASOPHILS 0.1 thou/uL (0.0-0.2); ABSOLUTE EOSINOPHILS 0.1 thou/uL (0.0-0.7); ABSOLUTE LYMPHOCYTES 1.9 thou/uL (0.8-5.3); ABSOLUTE MONOCYTES 0.7 thou/uL (0.0-1.2); ABSOLUTE NEUTROPHILS 3.4 thou/uL (1.6-8.1); BASOPHILS 0.9 %; EOSINOPHILS 2.1 %; HEMOGLOBIN 8.9 gm/dL (14.0-18.0); LYMPHOCYTES 30.6 %; MCH 29.5 pg (26.0-34.0); MCHC 32.9 g/dL (28.0-37.0); MCV 89.7 fL (80.0-100.0); MONOCYTES 11.8 %; MPV 8.9 fl. (7.2-11.1); NUCLEATED RBCS 0 /100WBC; PLATELET COUNT* 195 thou/uL (150-400); POLYS 54.6 %; RBC 3.01 mil/uL (4.50-6.00); RDW-CV 15.1 % (10.5-14.5); WBC 6.2 thou/uL (4.0-11.0)
[2017-11-11 05:43] LABS: ALBUMIN 2.6 g/dL (3.4-5.0); CALCIUM 8.3 mg/dL (8.5-10.1); POTASSIUM 4.1 mmol/L (3.5-5.1); TOTAL BILIRUBIN 0.3 mg/dL (<0.1-1.0); TOTAL PROTEIN 6.8 g/dL (6.4-8.2)
--- NOTE | 2017-11-11 05:46 | NUR ---
ASSESSMENT COMPLETE. VANC TROUGH 17, VANC DOSE CONTINUED. PT HAS PICC IN RIGHT UPPER ARM, DRAWS AND FLUSHES WITHOUT DIFFICULTY. PT USES URINAL NEEDED. CAST TO LEFT ANKLE, ELEVATED WITH PILLOW. PT HAS JAMI HOSE AND SCD ON RIGHT LEG. SEE ASSESSMENT AND VITALS FOR OTHER DETAILS. CALL LIGHT WITHIN REACH, WILL CONTINUE TO MONITOR
[2017-11-11 08:20] VITALS: BP 132/87
--- NOTE | 2017-11-11 10:00 | NUR ---
FAXED FACE SHEET,[facility] L[phone] TO CHECK FOR IV BENEFITS AT HOME. PT WILL NEED WEEKS OF IVAB PER . CX ARE PENDING.
[2017-11-11 10:36] VITALS: BP 132/87
[2017-11-11] MEDS ORDERED: ASPIRIN325 PO (10:45)
[2017-11-11] MEDS ORDERED: ZOFRAN ODT4 MG PO (10:46)
--- NOTE | 2017-11-11 13:53 | NUR ---
PT.KNOWN FROM PREVIOUS ADMISSION. HE LIVES WITH HIS AND SHE IS VERY SUPPORTIVE. HE HAS A WALKER AND CAN MAINTAIN NWB ON L LEG. HE IS MOSTLY INDEPENDENT AT HOME. HE WILL NEED TO GO HOME ON IVAB X 6 WKS FOR OSTEO. DISCUSSED WITH HIM AND . THEY ARE AGREEABLE TO DO HOME INFUSION Q 12 HRS. HE SAID LONG THEY CAN MAKE PAYMENTS TO [facility] AND BE ABLE TO FILL OUT FIANANCIAL ASSIST PAPERS. INFORMED DR. SINHA. FAXED ORDER FROM TO [facility] AND CALLED TO INFORM THEM HE IS BEING DISCHARGED TODAY.
[2017-11-11] MEDS ORDERED: VANCO 1 GR1 GM/250 M IV (14:14)
--- NOTE | 2017-11-11 15:06 | NUR ---
FAXED KOBY/YARELI DISCHARGE IVAB ORDERS FROM ,ALLERGIES,H&P,OP REPORT. THEY WILL DELIVER MEDICATION THIS PM TO PT.'S HOME. SPOKE WITH YARELI. DISCUSSED CAPS FOR END OF PICC LINE THAT ARE CHANGED EACH INFUSION AND HAVE ALCOHOL IN THE END OF THEM. YARELI SAID THESE WILL COME OUT WITH HIS ORDER. NO NEED TO ORDER SPECIFICALLY. CALLED AND SPOKE WITH [facility]. SHE SAID SHE COULD NOT HAVE A NURSE TO PTS HOME [facility] BUT BETWEEN 8-10 IN THE AM. FAXED HER FACE SHEET,ORDERS, IV ORDERS,ALLERIES, FACE TO FACE FORM,H&P AND OP REPORT TO [phone]. PT.WILL NEED TO STAY FOR 7PM IVAB. INFORMED PT.AND AND SUDHA ACOSTA.
--- NOTE | 2017-11-11 19:02 | NUR ---
PATIENT RESTING IN BED. PATIENT IS DISCHARGING THIS EVENING AFTER VANCOMYCIN INFUSION COMPLETE. DISCHARGE PAPERS REVIEWED AND SIGNED. PRESCRIPTIONS AND INFORMATION SHEETS GIVEN. IV REMOVED. PICC LINE IN PLACE FOR HOME IV ANTIBIOTIC INFUSION. HOME HEALTH SET UP FOR TEACHING IN AM. PATIENT DENIES ANY NEEDS AT THIS TIME. CALL LIGHT WITHIN REACH. WILL CONTINUE TO MONITOR.
--- NOTE | 2017-11-11 20:00 | NUR ---
PT AO X4, DENIES PAIN OR PROBLEMS, FAMILY MEMBER AT BEDSIDE PT IS FINISHING IV ABX DOSE. INFUSION COMPLETED AND PT DISCHARGING HOME PER WHEELCHAIR WITH NURSING STAFF ESCORTING OUT. FAMILY MEMBER ACCOMPANYING WITH BELONGINGS AND DISCHARGE INSTRUCTIONS.
--- NOTE | 2017-11-24 11:49 | CON ---
[facility] [address] [place] [address] CONSULTATION Name: PETER CARRILLO Room: [address] IN M.R.#: [id number] Admission: 11/09/17 Attend Phys: Lee Haynes Discharge: 11/11/17 Date of : 69 Report #: [id number] THIS REPORT FOR: //name// CC: Constance Leslie INFECTIOUS DISEASE CONSULTATION FOLLOWUP HISTORY OF PRESENT ILLNESS: The patient returns in followup hospitalization evaluation for chronic calcaneal osteomyelitis, left side. The patient is seen in conjunction with Dr. Sharma, Orthopedic Surgery. He returns today having completed roughly 2 weeks of parenteral therapy, had culture-proven MRSA and had a previous complex tib-fib fracture on the left that was stabilized with external fixator. His pins were removed and had purulence in both the medial and lateral aspect of the calcaneus. He generally had been feeling fairly well. He denies significant amount of localizing pain at the site. He has had a cast on his leg. He has not had systemic illness either. His appetite is good. Review of the labs from last week, his sed rate was in the 40s and had some mild anemia. ASSESSMENT AND PLAN: Calcaneal osteomyelitis, left side. We will continue vancomycin as prescribed, weekly labs. We will see him back in 2 weeks' time. Did discuss in detail with Dr. Sharma. <ELECTRONICALLY SIGNED> By: Paulino Monson MD 11/24/17 1149 1718 0002Joseph Twan Monson MD /nt
--- NOTE | 2017-12-10 15:26 | OP ---
[address] [address] OPERATIVE REPORT Name: PETER CARRILLO Room: [address] IN M.R.#: [id number] Admission: 11/09/17 Attend Phys: Lee Haynes Discharge: 11/11/17 Date of : 69 Report #: [id number] THIS REPORT FOR: //name// CC: Constance Leslie PREOPERATIVE DIAGNOSIS: Infected calcaneal pin sites with cellulitis tracking proximally. POSTOPERATIVE DIAGNOSIS: Infected calcaneal pin sites with cellulitis tracking proximally. PROCEDURES: 1. Removal of external fixation of the left lower extremity under anesthesia. 2. Irrigation and debridement down to bone and including sequestrectomy of calcaneal osteomyelitis. 3. Application of short-leg cast. 4. Physician-directed fluoroscopy less than 1 hour. SURGEON: Brian Sharma DO. VALUE STREAM MANAGER: Johnny Pool DO. ANESTHESIA: General. ANTIBIOTICS: Vancomycin IV. FLUIDS: 800 of LR. COMPLICATIONS: None. DRAINS: None. SPECIMENS: Multiple specimens taken from both medial and lateral draining sites and also deep tissue specimen and included bone. CONDITION OF THE PATIENT: Stable to PACU. INDICATIONS FOR PROCEDURE: The patient is a 52-year-old male who presented to [facility] today for operative fixation of his left lower extremity. We had a long conversation in our visit last week regarding the plan for surgery today. He had just finished antibiotics that had been given to him by my partner for a draining lateral pin site. I had him discontinue those. He never had any drainage from the medial site. Today, stated he was having drainage from the medial site and when I was expressing this, it was purulence. The lateral pin site is also draining now active purulence and there is [facility] [address] [place] [address] OPERATIVE REPORT Name: PETER CARRILLO Room: [address]#: [id number] Admission: 11/09/17 Attend Phys: Lee Haynes Discharge: 11/11/17 Date of : 69 Report #: [id number] cellulitis in the extremity that does track proximally up into the area where the incisions would need to be made for operative fixation or for distal pin placement. I do not appreciate any abscess or fluctuance in this area, but it is painful for him and the cellulitis tracks up to several centimeters proximal to the joint line, involving the area of previous fracture blisters. We had quite an extensive conversation talking about our different options. At this point in time, due to the fact that he has an active infection in his calcaneus and tracking of the infection proximally to the area where incisions or pins will need to be placed, recommendation will be that today we take him to the operating room, remove the external fixation, perform an irrigation and debridement of his pin sites including down to the calcaneus, remove any infected bone from that pin tract, place him in a short-leg cast, get him admitted and likely an Infectious Disease consultation and will likely be requiring IV antibiotics. They understood this, thanked me for my time and detailed explanations of the process and they would like to proceed. I went over them the risks and complications associated with this plan for current nonoperative management in a short-leg cast application, included but not limited to infection and could continue to require long-term antibiotic therapy with a sequela of organ damage, C. difficile colitis resistance, hematopoietic dysfunction, etc., continued and/or worsening of pain, decreased function that could lead to loss of independent ambulation and ability to return to normal activities including any occupation, collapse of the fracture site and ultimately malunion, nonunion, need for further surgery for any reason that could include multiple surgeries for correction and ultimately lead to amputation that could be [id number] or above the knee, DVT, PE, CO, stroke, possible , anesthetic-related complications that would be discussed by the Anesthesia team prior to the surgery and there is also a possibility of risk and complications that would be addressed upon presentation. After addressing questions that they had, they acknowledged and accepted those risks and would like to proceed with the plan. He was complaining of some calf pain, and therefore, in the preoperative area, we performed an ultrasound to check for DVT; it was negative. DESCRIPTION OF PROCEDURE: I marked his left lower extremity in the presence of the operative team members and everyone agreed this was correct. He was then taken to the operative suite, where a briefing was performed indicating correct patient, procedure, site and antibiotics. All team members agreed. He was transferred over to the operating table in supine position, well-padded and secured. General anesthetic was administered. We sterilely prepped and draped the left lower extremity in standard fashion, including prepping in the external fixation so that we would not be prepping the leg, with no stability. A timeout was performed indicating correct patient, procedure, site and antibiotics; all team members agreed. We began by removing the external fixation, cut the pin medially and then pulled this over laterally significantly loose; and as the pin came [place], [place] [address] OPERATIVE REPORT Name: PETER CARRILLO Room: [facility] IN [facility]#: [id number] Admission: 11/09/17 Attend Phys: Lee Haynes Discharge: 11/11/17 Date of : 69 Report #: [id number] significant amount of purulence that followed. At this point in time, we turned our attention to I and D this. I removed any skin from around this area laterally. This did open up a bigger hole than what was originally there. Our debridement included down to bone and with sequestrectomy removing any infected bone. This bone and deep tissue cultures were sent for culture as well. We had also cultured the medial and lateral wounds for anaerobic and aerobic and Synthes off as well. He does have a history of Staph and he believes an MRSA infection from a port in the past. Once we had fully debrided this down, we then brought in C-arm imaging to see if there was any healing of this fracture site. He had some translation of the distal aspect had some mobility, but not as unstable as was when we first put the external fixator on, and his joint line overall looked congruent on the lateral. We irrigated the pin sites with 3 liters of normal saline from a cystoscopy tubing and gravity flow. Using separate instruments that were sterile and untouched from the back table previously, we were able to curette these out and irrigate the proximal pin sites as well and these looked overall clean. We debrided down any remaining scabbing from the blisters. There actually was good skin underneath. However, the areas of cellulitis tracking approximately from these pin sites made it difficult to tell if this was healed tissue underneath with normal redness or if this was redness from the tracking cellulitis. Again, no abscess was appreciated on examination, just extensive cellulitis tracking approximately from these pin sites. At that point in time, we then placed a stockinette, cut holes in the stockinette for pin sites, placed Adaptic, 4 x 4s and then overwrapped with a soft roll. I made sure that the heels and malleoli were well padded and then applied our short-leg cast. As the cast was hardening, we brought in C-arm and took multiple images showing that we had overall maintained our preoperative alignment. We the cast fully set, we then performed a debriefing, where we confirmed the procedure, blood loss. The specimens were being sent and all counts were correct and final. All team members agreed. He was extubated and transferred to PACU in stable condition. POSTOPERATIVE COURSE AND EVALUATION: I spoke with his , per his wishes, to let her know what had been found and the plan moving forward. She thanked me for my time and effort. I examined him in the PACU. He was resting comfortably, stable vital signs. Neurovascularly, he was intact distally at the toes. Pain was controlled. I personally contacted Dr. Monson with Infectious Disease regarding this patient's condition. He agreed with this treatment plan and avoiding any hardware at this time and he recommended that with the extensive infection, IV antibiotics would be recommended, especially due to the fact that he most likely has malabsorption with this history of Whipple and pancreatic cancer and he looks overall malnourished. I got some nutrition labs, which did show that his albumin was low. I have been telling him to do Boost shakes for the last couple of weeks now in order to try and get him to a near [address] [address] OPERATIVE REPORT Name: PETER CARRILLO Room: [address] DIS IN M.R.#: [id number] Admission: 11/09/17 Attend Phys: Lee Haynes Discharge: 11/11/17 Date of : 69 Report #: [id number] normal level. He says he is decreasing his smoking, as it is going to be critical that he stops this. It was discussed with him prior to surgery that if he does not stop smoking, his amputation rate is quite elevated above baseline. He will be admitted with all consultations in place. DVT prophylaxis will be with aspirin b.i.d. as directed. He is nonweightbearing on that extremity. Cast care instructions given to him. We will continue vancomycin IV per Dr. Monson's recommendation from our talk until cultures come back and these can be adjusted. <ELECTRONICALLY SIGNED> By: Chet Mcdonald DO 12/10/17 1526 1007 1130Brian Sharma DO /nt
== END 2017-11-11 20:00 | disposition home health service (06) | DRG 495 ==
LOC: M.TBA 06:11 → M.ORTHSURG 06:11 → M.PRE 06:48 → M.ORTHSURG 11:00 → M.PRE 11:05 → M.ORTHSURG 11-11 20:00
PROVIDERS: Internal Medicine; Orthopaedic Surgery; ADMIT Internal Medicine
DX: T84.623A Infection and inflammatory reaction due to internal fixation device of left tibia, initial encounter (principal); E43 Unspecified severe protein-calorie malnutrition; L03.116 Cellulitis of left lower limb; M86.8X7 Other osteomyelitis, ankle and foot; Z68.1 Body mass index [BMI] 19.9 or less, adult; B19.20 Unspecified viral hepatitis C without hepatic coma; I10 Essential (primary) hypertension; F32.9 Major depressive disorder, single episode, unspecified; F41.9 Anxiety disorder, unspecified; D64.9 Anemia, unspecified; G89.29 Other chronic pain; F17.210 Nicotine dependence, cigarettes, uncomplicated; Y83.8 Other surgical procedures as the cause of abnormal reaction of the patient, or of later complication, without mention of misadventure at the time of the procedure; Y92.89 Other specified places as the place of occurrence of the external cause; Z85.07 Personal history of malignant neoplasm of pancreas; Z79.82 Long term (current) use of aspirin; Z79.899 Other long term (current) drug therapy; Z88.8 Allergy status to other drugs, medicaments and biological substances; Z80.0 Family history of malignant neoplasm of digestive organs; Z80.6 Family history of leukemia

== ENCOUNTER 2017-11-24 16:39 | Observation (INO) | payer MEDICARE ==
[~2017-11-24] VITALS: Ht 170.2 cm; Wt 54.4 kg
[~2017-11-24 16:39] MED LIST changes: +ASPIRIN325 PO; +VANCO 1 GR1 GM/250 M IV
[2017-11-24 16:44] VITALS: BP 123/78
[2017-11-24] MEDS ORDERED: CARAFATE 1 GM TA1 G1 PO (16:53)
[2017-11-24 17:22] LABS: HEMATOCRIT 27.6 % (42.0-52.0); HEMOGLOBIN 9.1 gm/dL (14.0-18.0); MCH 29.6 pg (26.0-34.0); MCHC 32.8 g/dL (28.0-37.0); MPV 8.4 fl. (7.2-11.1); NUCLEATED RBCS 0 /100WBC; PLATELET COUNT* 183 thou/uL (150-400); RBC 3.07 mil/uL (4.50-6.00); RDW-CV 16.1 % (10.5-14.5); WBC 16.8 thou/uL (4.0-11.0)
[2017-11-24 17:29] LABS: PROTIME 10.7 Seconds (9.20-11.50)
[2017-11-24 17:32] LABS: ANION GAP 3 mmol/L (7-16); BUN 13 mg/dL (7-18); CHLORIDE 97 mmol/L (98-107); CO2 29 mmol/L (21-32); CREATININE 1.2 mg/dL (0.6-1.3); GLUCOSE 146 mg/dL (70-99); POTASSIUM 3.9 mmol/L (3.5-5.1); SODIUM 129 mmol/L (136-145)
[2017-11-24 17:38] LABS: ABSOLUTE EOSINOPHILS 0.2 thou/uL (0.0-0.7); ABSOLUTE LYMPHOCYTES 1.2 thou/uL (0.8-5.3); ABSOLUTE MONOCYTES 0.7 thou/uL (0.0-1.2); ABSOLUTE NEUTROPHILS 14.8 thou/uL (1.6-8.1)
[2017-11-24 17:39] LABS: PLATELET ESTIMATE ADEQUATE
[2017-11-24 17:40] LABS: ANISOCYTOSIS Occasional
[2017-11-24 17:42] LABS: ALBUMIN 2.6 g/dL (3.4-5.0); ALKALINE PHOSPHATASE 161 U/L (46-116); LIPASE 36 U/L (73-393); NT-PRO BRAIN NAT PEPTIDE 386 pg/mL (<300); SGOT 15 U/L (15-37); SGPT 18 U/L (30-65); TOTAL BILIRUBIN 0.3 mg/dL (<0.1-1.0); TOTAL PROTEIN 6.7 g/dL (6.4-8.2); TROPONIN-I LEVEL <0.06 ng/mL (<0.06)
[2017-11-24 18:28] VITALS: BP 122/75
[2017-11-24 18:32] LABS: URINE BILIRUBIN NEGATIVE (Negative); URINE BLOOD NEGATIVE (Negative); URINE CLARITY CLEAR; URINE COLOR YELLOW; URINE GLUCOSE-RANDOM NEGATIVE (Negative); URINE KETONES NEGATIVE (Negative); URINE LEUKOCYTES-REFLEX NEGATIVE (Negative); URINE NITRITE-REFLEX NEGATIVE (Negative); URINE PROTEIN NEGATIVE (Negative); URINE SPECIFIC GRAVITY 1.015 (1.005-1.030); URINE UROBILINOGEN 0.2 E.U./dl (0.2-1.0)
[2017-11-24 18:40] VITALS: BP 127/80
[2017-11-24 19:09] LABS: INFLUENZA A ANTIGEN None Detected (None Detect)
[2017-11-25 00:28] VITALS: BP 110/77
[2017-11-25 04:13] VITALS: BP 126/77
[2017-11-25 05:07] LABS: HEMATOCRIT 24.4 % (42.0-52.0); HEMOGLOBIN 8.2 gm/dL (14.0-18.0); MCH 30.2 pg (26.0-34.0); MCHC 33.4 g/dL (28.0-37.0); MCV 90.4 fL (80.0-100.0); MPV 8.9 fl. (7.2-11.1); RBC 2.7 mil/uL (4.50-6.00); RDW-CV 16.2 % (10.5-14.5); WBC 10.9 thou/uL (4.0-11.0)
--- NOTE | 2017-11-25 05:38 | NUR ---
PATIENT SLEPT PART OF THE NIGHT. PATIENT WAS GIVEN PAIN MEDICINE ONCE THIS SHIFT. IV FLUIDS WERE STARTED AT 100 ML/HR AND IV VANC GIVEN ORDERED. TAMIFLU STARTED FOR INFLUENZA B. PATIENT HAS BEEN AFEBRILE. WILL CONTINUE TO MONITOR.
[2017-11-25 05:41] LABS: ALBUMIN 2.3 g/dL (3.4-5.0); CALCIUM 7.7 mg/dL (8.5-10.1); MAGNESIUM 1.9 mg/dL (1.8-2.4); TOTAL BILIRUBIN 0.3 mg/dL (<0.1-1.0)
[2017-11-25 07:50] VITALS: BP 118/79
[2017-11-25] MEDS ORDERED: TAMIFLU30 MG PO (10:39)
[2017-11-25 15:17] VITALS: BP 118/79
[2017-11-25 15:33] VITALS: BP 118/79
--- NOTE | 2017-11-25 15:47 | NUR ---
SW met with pt and pt to complete initial assessment, introduce self, and SW role. Pt alert, oriented. Pt to dc home with today. Pt active with [facility] and [facility] for IV abx. SW faxed updated script to [facility] and information and dc orders to [facility]. Pt and pt did not have any other questions or dc needs.
--- NOTE | 2017-11-25 16:15 | NUR ---
PATIENT DISCHARGED TO HOME WITH HOME HEALTH. DISCHARGE PAPERS REVIEWED AND SIGNED. PRESCRIPTION AND INFORMATION SHEETS GIVEN. PICC LINE IN PLACE FOR IV ANTIBIOTICS. FLU SHOT ADMINISTERED ORDERED. PATIENT DENIES ANY FURTHER NEEDS. PATIENT TAKEN BY WHEELCHAIR TO EXIT. LEFT WITH .
--- NOTE | 2017-11-25 16:37 | EKG ---
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 : 1965 Requested By: Brian Johns Order Number: [id number] MD: Tono Soria Measurements Intervals [place] Rate: 92 P: 86 DE: 133 QRS: 73 QRSD: 90 T: 58 QT: 347 QTc: 430 Interpretive Statements Sinus rhythm Left ventricular hypertrophy Baseline wander in lead(s) V2,V4 Compared to ECG 10/14/2017 16:21:36 Left ventricular hypertrophy now present Short DE interval no longer present ST (T wave) deviation no longer present Prolonged QT interval no longer present Electronically Signed On 11-25-2017 16:36:54 CDT by Tono Soria [email or web address] <ELECTRONICALLY SIGNED> By: Tono Soria MD, FACC 11/25/17 1636 1651 1651 Tono Soria MD, FAC /EPI
--- NOTE | 2017-11-26 07:56 | CON ---
[address] [address] CONSULTATION Name: PETER CARRILLO Room: [address] Jason Perry#: [id number] Admission: 11/24/17 Attend Phys: Brian House MD Discharge: 11/25/17 Date of : 69 Report #: [id number] THIS REPORT FOR: //name// CC: Constance House DATE OF SERVICE: 11/25/2017 INFECTIOUS DISEASE CONSULTATION ATTENDING PHYSICIAN: Brian House M.D. REASON FOR EVALUATION: Febrile illness, positive influenza B antigen testing. HISTORY OF PRESENT ILLNESS: Chart reviewed, patient examined. This is a 52-year-old known to myself who was just seen recently, had been hospitalized subsequent to a probable deep infection involving his calcaneus and severe trauma, had external fixator, pin became infected, had culture proven MRSA. He has actually been on therapy for a couple of weeks of parenteral vancomycin. He was seen in the office, doing well; however, during the course of the following 24 hours, he was followed up in Oncology for his pancreatic cancer and was found to have fevers and referred for admission. Screening influenza study proved positive for influenza B, he was started on Oseltamivir. He has clinically improved. Denies any upper or lower respiratory tract signs or symptoms, no sore throat, no headache. He is eating well. He has defervesced. He denies any gastrointestinal-related complaints. ALLERGIES: LORAZEPAM AND HYDROCODONE. CURRENT MEDICATIONS: Include citalopram, pancrelipase, pantoprazole, cyclobenzaprine, sucralfate, enoxaparin, aspirin, famotidine, mirtazapine, metoclopramide, vancomycin, promethazine, p.r.n. analgesics, antiemetics, and Oseltamivir. PAST MEDICAL HISTORY: Above noted pancreatic cancer, post Whipple's in 2014, required a second surgery in 2016; hypertension; anxiety and depression; chronic pancreatitis; chronic pain syndrome; left ankle osteomyelitis. SOCIAL HISTORY: Former smoker. No ethanol. FAMILY HISTORY: Noncontributory. REVIEW OF SYSTEMS: As above. PHYSICAL EXAMINATION: GENERAL: He appears chronically ill, undernourished. [place] [address] CONSULTATION Name: PETER CARRILLO [address]#: [id number] Admission: 11/24/17 Attend Phys: Brian House MD Discharge: 11/25/17 Date of : 69 Report #: [id number] cooperative. He is not overtly distressed at this point. VITAL SIGNS: Temperature 97.5, pulse 73, respirations 20, blood pressure 118/79. SKIN: Warm, dry, no rashes. HEENT: Unremarkable. NECK: Supple. LUNGS: Clear to auscultation. HEART: Regular. I do not appreciate murmur. ABDOMEN: Soft, nontender, nondistended. ASSESSMENT: Influenza B. now on Tamiflu with no evidence of toxicity at this point. I do not think there is any evidence of secondary bacterial infection including pneumonitis. I think it is reasonable to discharge on the Tamiflu, encourage pushing fluids. We will continue the vancomycin as prescribed, need additional 4 weeks of treatment, had been working with Dr. Sharma. We will see him in clinic in a couple of weeks. <ELECTRONICALLY SIGNED> By: Paulino Monson MD 11/26/17 0756 1500 1850Jocharity Monson MD /nt
--- NOTE | 2017-12-09 11:50 | CON ---
[address] [address] CONSULTATION Name: PETER CARRILLO Room: [address] Jason Perry#: [id number] Admission: 11/24/17 Attend Phys: Brian House MD Discharge: 11/25/17 Date of : 69 Report #: [id number] THIS REPORT FOR: //name// CC: Constance House Seen in the outpatient therapy with Dr. Sharma, orthopedic surgeon. HISTORY OF PRESENT ILLNESS: He is here for followup of chronic osteomyelitis involving his calcaneus, site of previous external fixator pin site infection with isolation of MRSA. He is on parenteral therapy and has completed roughly 4 weeks of treatment. On questioning, he denies any particular associated pain. He has a complete offloading at this point. He has not been systemically ill. Denies any GI or pulmonary related complaints. His appetite has been fair. His weight has been generally stable. ASSESSMENT AND PLAN: Chronic osteomyelitis. At this point, would plan to extend at least 2 weeks of therapy, get weekly labs. He is utilizing vancomycin. We will plan on seeing him back with Dr. Sharma in 2 weeks. <ELECTRONICALLY SIGNED> By: Paulino Monson MD 12/09/17 1150 0854 1901Jocharity Monson MD /nt
== END 2017-11-25 16:15 | disposition home health service (06) ==
LOC: M.ERS 16:39 → M.3W 17:39 → M.TBA-ER 17:39 → M.3W 17:39
PROVIDERS: Family Medicine; ADMIT Internal Medicine
DX: A41.89 Other specified sepsis (principal); J10.1 Influenza due to other identified influenza virus with other respiratory manifestations; B19.20 Unspecified viral hepatitis C without hepatic coma; K31.84 Gastroparesis; F41.1 Generalized anxiety disorder; F32.9 Major depressive disorder, single episode, unspecified; G89.29 Other chronic pain; E87.1 Hypo-osmolality and hyponatremia; F11.20 Opioid dependence, uncomplicated; R50.9 Fever, unspecified; M54.5 Low back pain; I10 Essential (primary) hypertension; F41.9 Anxiety disorder, unspecified; M86.9 Osteomyelitis, unspecified; B95.62 Methicillin resistant Staphylococcus aureus infection as the cause of diseases classified elsewhere; F17.200 Nicotine dependence, unspecified, uncomplicated; Z98.890 Other specified postprocedural states; Z85.07 Personal history of malignant neoplasm of pancreas; Z23 Encounter for immunization

== ENCOUNTER 2018-03-13 16:53 | Emergency (ER) | payer MEDICARE ==
[~2018-03-13] VITALS: Ht 170.2 cm; Wt 52.0 kg
[~2018-03-13 16:53] MED LIST changes: +TAMIFLU30 MG PO
[2018-03-13] MEDS ORDERED: KEFLEX500 M1 PO (18:09)
[2018-03-13 18:39] VITALS: BP 120/77
== END 2018-03-13 18:40 | disposition home or self-care (01) ==
LOC: M.ERS 16:53
DX: T24.202A Burn of second degree of unspecified site of left lower limb, except ankle and foot, initial encounter (principal); T31.0 Burns involving less than 10% of body surface; I10 Essential (primary) hypertension; Z86.14 Personal history of Methicillin resistant Staphylococcus aureus infection; F41.9 Anxiety disorder, unspecified; F32.9 Major depressive disorder, single episode, unspecified; G89.29 Other chronic pain; Z88.8 Allergy status to other drugs, medicaments and biological substances; Z86.19 Personal history of other infectious and parasitic diseases; Z85.07 Personal history of malignant neoplasm of pancreas; X08.8XXA Exposure to other specified smoke, fire and flames, initial encounter; Y93.89 Activity, other specified; Y92.89 Other specified places as the place of occurrence of the external cause; Y99.8 Other external cause status

== ENCOUNTER 2018-08-14 09:40 | Emergency (ER) | payer MEDICARE ==
[~2018-08-14] VITALS: Ht 165.1 cm; Wt 54.0 kg
[~2018-08-14 09:40] MED LIST changes: +KEFLEX500 M1 PO
[2018-08-14 10:25] LABS: NUCLEATED RBCS 0 /100WBC; WBC 10.5 thou/uL (4.0-11.0)
[2018-08-14 10:26] LABS: HEMATOCRIT 37.7 % (42.0-52.0); HEMOGLOBIN 12.2 gm/dL (14.0-18.0); MCHC 32.3 g/dL (28.0-37.0); MCV 86.6 fL (80.0-100.0); MPV 9.6 fl. (7.2-11.1); PLATELET COUNT* 148 thou/uL (150-400); RBC 4.36 mil/uL (4.50-6.00)
[2018-08-14 10:32] LABS: ANION GAP 12 mmol/L (7-16); BUN 10 mg/dL (7-18); CALCIUM 9.4 mg/dL (8.5-10.1); CHLORIDE 103 mmol/L (98-107); CO2 26 mmol/L (21-32); CREATININE 1.2 mg/dL (0.6-1.3); GLUCOSE 150 mg/dL (70-99); POTASSIUM 4.8 mmol/L (3.5-5.1); SODIUM 141 mmol/L (136-145)
[2018-08-14 10:41] LABS: ALBUMIN 3.5 g/dL (3.4-5.0); ALKALINE PHOSPHATASE 132 U/L (46-116); LIPASE 19 U/L (73-393); SGOT 23 U/L (15-37); SGPT 24 U/L (30-65); TOTAL BILIRUBIN 0.7 mg/dL (<0.1-1.0); TOTAL PROTEIN 8.3 g/dL (6.4-8.2); TROPONIN-I LEVEL <0.06 ng/mL (<0.06)
[2018-08-14 11:53] LABS: ABSOLUTE BASOPHILS 0.1 thou/uL (0.0-0.2); ABSOLUTE LYMPHOCYTES 0.4 thou/uL (0.8-5.3); ABSOLUTE MONOCYTES 0.1 thou/uL (0.0-1.2); ABSOLUTE NEUTROPHILS 9.9 thou/uL (1.6-8.1); PLATELET ESTIMATE ADEQUATE
[2018-08-14 12:05] LABS: URINE BILIRUBIN NEGATIVE (Negative); URINE BLOOD NEGATIVE (Negative); URINE CLARITY CLEAR; URINE COLOR YELLOW; URINE GLUCOSE-RANDOM NEGATIVE (Negative); URINE KETONES TRACE (Negative); URINE LEUKOCYTES-REFLEX NEGATIVE (Negative); URINE NITRITE-REFLEX NEGATIVE (Negative); URINE PROTEIN NEGATIVE (Negative); URINE SPECIFIC GRAVITY <= 1.005 (1.005-1.030); URINE UROBILINOGEN 0.2 E.U./dl (0.2-1.0)
[2018-08-14] MEDS ORDERED: LEVAQUIN 750 M750 MG PO (12:15)
[2018-08-14] MEDS ORDERED: FLAGYL500 M1 PO (12:15)
[2018-08-14 13:05] VITALS: BP 164/93
--- NOTE | 2018-08-15 15:33 | EKG ---
[place] [address] ELECTROCARDIOGRAM REPORT Name: LROENAPETER Room: [facility]#: [id number] Admission: 08/14/18 Attend Phys: Discharge: 08/14/18 Date of : 69 Report #: [id number] THIS REPORT FOR: //name// [facility] ED Test Date: 2018-08-14 Test Time: 10:08:25 Pat Name: PETER CARRILLO Department: Room: Gender: Filer Finish: Rayna CAMARA : 1965 Requested By: Festus Hendricks Order Number: [id number] MD: Tono Soria Measurements Intervals [place] Rate: 82 P: 94 [place]: 133 QRS: 84 QRSD: 93 T: 58 QT: 367 QTc: 429 Interpretive Statements Sinus rhythm Right atrial enlargement possible Consider left ventricular hypertrophy Compared to ECG 11/24/2017 16:51:06 Atrial abnormality now present Electronically Signed On 08-15-2018 15:32:49 CDT by Tono Soria [email or web address] <ELECTRONICALLY SIGNED> By: Tono Soria MD, [facility] 08/15/18 1532 1008 1008 Tono Soria MD, FACC /EPI
== END 2018-08-14 13:05 | disposition home or self-care (01) ==
LOC: M.ERS 09:40
PROVIDERS: Emergency Medicine Emergency Medical Services
DX: K52.9 Noninfective gastroenteritis and colitis, unspecified (principal); I10 Essential (primary) hypertension; F41.9 Anxiety disorder, unspecified; F32.9 Major depressive disorder, single episode, unspecified; F17.200 Nicotine dependence, unspecified, uncomplicated; Z85.07 Personal history of malignant neoplasm of pancreas; Z88.5 Allergy status to narcotic agent; Z88.8 Allergy status to other drugs, medicaments and biological substances

== ENCOUNTER 2018-08-20 15:37 | Emergency (ER) | payer MEDICARE ==
[~2018-08-20] VITALS: Ht 167.6 cm; Wt 54.0 kg
[~2018-08-20 15:37] MED LIST changes: +FLAGYL500 M1 PO; +LEVAQUIN 750 M750 MG PO
[2018-08-20 16:25] LABS: PCO2 36.5 mmHg (35.0-45.0); PO2 76.8 mmHg (75.0-100.0); pH 7.449 (7.340-7.450)
[2018-08-20 16:36] LABS: ABSOLUTE LYMPHOCYTES 1.1 thou/uL (0.8-5.3); ABSOLUTE MONOCYTES 0.7 thou/uL (0.0-1.2); ABSOLUTE NEUTROPHILS 4.6 thou/uL (1.6-8.1); BASOPHILS 0.5 %; EOSINOPHILS 0.3 %; HEMATOCRIT 33.7 % (42.0-52.0); HEMOGLOBIN 11.3 gm/dL (14.0-18.0); LYMPHOCYTES 16.5 %; MCH 28.3 pg (26.0-34.0); MCHC 33.4 g/dL (28.0-37.0); MCV 84.7 fL (80.0-100.0); MONOCYTES 10.2 %; MPV 9.4 fl. (7.2-11.1); NUCLEATED RBCS 0 /100WBC; PLATELET COUNT* 143 thou/uL (150-400); POLYS 72.5 %; RBC 3.98 mil/uL (4.50-6.00); RDW-CV 16.4 % (10.5-14.5); WBC 6.4 thou/uL (4.0-11.0)
[2018-08-20 16:48] LABS: ANION GAP 7 mmol/L (7-16); BUN 11 mg/dL (7-18); CALCIUM 8.1 mg/dL (8.5-10.1); CHLORIDE 96 mmol/L (98-107); CO2 28 mmol/L (21-32); CREATININE 1.2 mg/dL (0.6-1.3); GLUCOSE 132 mg/dL (70-99); SODIUM 131 mmol/L (136-145)
[2018-08-20 16:53] LABS: ALBUMIN 3.1 g/dL (3.4-5.0); ALKALINE PHOSPHATASE 118 U/L (46-116); MAGNESIUM 1.8 mg/dL (1.8-2.4); SGOT 16 U/L (15-37); SGPT 21 U/L (30-65); TOTAL BILIRUBIN 0.4 mg/dL (<0.1-1.0); TROPONIN-I LEVEL <0.06 ng/mL (<0.06)
[2018-08-20] MEDS ORDERED: LEVAQUIN 500 M500 MG PO (17:58)
[2018-08-20 18:26] VITALS: BP 110/68
[2018-08-20 18:38] LABS: INR 1.2; PROTIME 12.7 Seconds (9.20-11.50)
--- NOTE | 2018-08-22 13:51 | EKG ---
[place] [address] ELECTROCARDIOGRAM REPORT Name: PETER CARRILLO [id number] Admission: 08/20/18 Attend Phys: Discharge: 08/20/18 Date of : 69 Report #: [id number] THIS REPORT FOR: //name// 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: : 1965 Requested By: Suzette Chavez Order Number: [id number] MD: Jhoan Giron Measurements Intervals [place] Rate: 88 P: 84 NM: 135 QRS: 84 QRSD: 90 T: 56 QT: 346 QTc: 419 Interpretive Statements Sinus rhythm artifact noted Probable left atrial enlargement Probable left ventricular hypertrophy ST elev, probable normal early repol pattern Compared to ECG 08/14/2018 10:08:25 no change Electronically Signed On 08-22-2018 13:51:32 CDT by Jhoan Giron [email or web address] <ELECTRONICALLY SIGNED> By: Jhoan Giron MD, [facility] 08/22/18 1351 1613 161 Jhoan Giron MD, [facility] /EPI
== END 2018-08-20 18:26 | disposition home or self-care (01) ==
LOC: M.ERS 15:37
PROVIDERS: Personal Emergency Response Attendant
DX: R50.9 Fever, unspecified (principal); R42 Dizziness and giddiness; I10 Essential (primary) hypertension; F41.9 Anxiety disorder, unspecified; F32.9 Major depressive disorder, single episode, unspecified; G89.29 Other chronic pain; Z88.5 Allergy status to narcotic agent; Z88.8 Allergy status to other drugs, medicaments and biological substances; Z86.19 Personal history of other infectious and parasitic diseases; Z86.14 Personal history of Methicillin resistant Staphylococcus aureus infection; Z85.07 Personal history of malignant neoplasm of pancreas

== ENCOUNTER 2019-03-26 09:43 | Emergency (ER) | payer MEDICARE ==
[~2019-03-26] VITALS: Ht 167.6 cm; Wt 54.4 kg
[~2019-03-26 09:43] MED LIST changes: +LEVAQUIN 500 M500 MG PO
[2019-03-26] MEDS ORDERED: NEURONTIN100 MG PO (09:54)
[2019-03-26 10:20] LABS: HEMATOCRIT 37.6 % (42.0-52.0); HEMOGLOBIN 12.9 gm/dL (14.0-18.0); MCH 28.9 pg (26.0-34.0); MCHC 34.2 g/dL (28.0-37.0); MCV 84.4 fL (80.0-100.0); MPV 9.5 fl. (7.2-11.1); NUCLEATED RBCS 0 /100WBC; PLATELET COUNT* 112 thou/uL (150-400); RBC 4.46 mil/uL (4.50-6.00); RDW-CV 16.2 % (10.5-14.5); WBC 10.1 thou/uL (4.0-11.0)
[2019-03-26 10:29] LABS: CALCIUM 8.6 mg/dL (8.5-10.1); CREATININE 1.6 mg/dL (0.6-1.3); POTASSIUM 3.6 mmol/L (3.5-5.1)
[2019-03-26 10:33] LABS: ALBUMIN 3.6 g/dL (3.4-5.0); TOTAL PROTEIN 7.9 g/dL (6.4-8.2)
[2019-03-26 10:40] LABS: ABSOLUTE EOSINOPHILS 0.1 thou/uL (0.0-0.7); ABSOLUTE LYMPHOCYTES 0.3 thou/uL (0.8-5.3); ABSOLUTE MONOCYTES 0.5 thou/uL (0.0-1.2); ABSOLUTE NEUTROPHILS 9.2 thou/uL (1.6-8.1); PLATELET ESTIMATE ADEQUATE
[2019-03-26] MEDS ORDERED: ZOFRAN ODT4 MG SUBLING (12:01)
[2019-03-26 12:31] VITALS: BP 144/88
--- NOTE | 2019-03-27 10:39 | EKG ---
[place] [address] ELECTROCARDIOGRAM REPORT Name: PETER [facility]LL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: : 1965 Requested By: Brian Johns Order Number: [id number] MD: Jhoan Giron Measurements Intervals [place] Rate: 77 P: 63 SD: 119 QRS: 85 QRSD: 97 T: 67 QT: 406 QTc: 460 Interpretive Statements Sinus rhythm Borderline short SD interval Left ventricular hypertrophy Compared to ECG 08/20/2018 16:13:48 no change Electronically Signed On 03-27-2019 10:39:07 PRODUCTION SAMPLER by Jhoan Giron [email or web address] <ELECTRONICALLY SIGNED> By: Jhoan Giron MD, [facility] 03/27/19 1039 1031 1031 Jhoan Giron MD, FACC /EPI
== END 2019-03-26 12:32 | disposition home or self-care (01) ==
LOC: M.ERS 09:43
PROVIDERS: Family Medicine
DX: R10.84 Generalized abdominal pain (principal); R11.2 Nausea with vomiting, unspecified; Z88.5 Allergy status to narcotic agent; Z88.8 Allergy status to other drugs, medicaments and biological substances; Z86.19 Personal history of other infectious and parasitic diseases; Z86.14 Personal history of Methicillin resistant Staphylococcus aureus infection; Z85.07 Personal history of malignant neoplasm of pancreas

== ENCOUNTER → 2019-04-24 | Outpatient (CLI) | payer MEDICARE ==
[~2019-04-24] MED LIST changes: +NEURONTIN100 MG PO; +ZOFRAN ODT4 MG SUBLING
== END ==
LOC: M.RAD 14:00
DX: N63.42 Unspecified lump in left breast, subareolar (principal); N62 Hypertrophy of breast

== ENCOUNTER 2019-11-10 08:33 | Inpatient (IN) | payer MEDICARE ==
[~2019-11-10] VITALS: Ht 170.2 cm; Wt 54.9 kg
[2019-11-10 08:41] VITALS: BP 158/117
[2019-11-10 09:02] LABS: HEMATOCRIT 40.1 % (42.0-52.0); HEMOGLOBIN 13.7 gm/dL (14.0-18.0); MCHC 34.2 g/dL (28.0-37.0); MCV 90.5 fL (80.0-100.0); MPV 8.8 fl. (7.2-11.1); NUCLEATED RBCS 0 /100WBC; PLATELET COUNT* 152 thou/uL (150-400); RBC 4.43 mil/uL (4.50-6.00); RDW-CV 16.3 % (10.5-14.5); WBC 8.8 thou/uL (4.0-11.0)
[2019-11-10 09:38] LABS: CALCIUM 8.4 mg/dL (8.5-10.1); CREATININE 1.2 mg/dL (0.6-1.3); POTASSIUM 4.2 mmol/L (3.5-5.1)
[2019-11-10 09:42] LABS: ALBUMIN 3.7 g/dL (3.4-5.0); TOTAL BILIRUBIN 1.6 mg/dL (<0.1-1.0); TOTAL PROTEIN 8.1 g/dL (6.4-8.2)
[2019-11-10 10:54] LABS: ABSOLUTE EOSINOPHILS 0.1 thou/uL (0.0-0.7); ABSOLUTE LYMPHOCYTES 0.4 thou/uL (0.8-5.3); ABSOLUTE NEUTROPHILS 8.4 thou/uL (1.6-8.1); PLATELET ESTIMATE ADEQUATE
[2019-11-10 11:53] LABS: ICTOTEST (BILI CONFIRMATORY) Negative (Negative); URINE BILIRUBIN 1+ (Negative); URINE BLOOD NEGATIVE (Negative); URINE CLARITY CLEAR; URINE COLOR YELLOW; URINE GLUCOSE-RANDOM NEGATIVE (Negative); URINE KETONES NEGATIVE (Negative); URINE LEUKOCYTES-REFLEX NEGATIVE (Negative); URINE NITRITE-REFLEX NEGATIVE (Negative); URINE PROTEIN NEGATIVE (Negative); URINE SPECIFIC GRAVITY 1.025 (1.005-1.030)
[2019-11-10 15:14] VITALS: BP 168/93
[2019-11-10 19:15] VITALS: BP 154/93
[2019-11-10 21:53] LABS: AMP/METHAMP Negative (Negative); BARBITURATES Negative (Negative); BENZODIAZEPINES POSITIVE (Negative); COCAINE Negative (Negative); METHADONE Negative (Negative); OPIATES POSITIVE (Negative); PCP Negative (Negative); THC Negative (Negative)
[2019-11-11 04:33] LABS: ABSOLUTE LYMPHOCYTES 0.5 thou/uL (0.8-5.3); ABSOLUTE MONOCYTES 0.4 thou/uL (0.0-1.2); ABSOLUTE NEUTROPHILS 8.8 thou/uL (1.6-8.1); BASOPHILS 0.1 %; HEMATOCRIT 33.9 % (42.0-52.0); HEMOGLOBIN 11.8 gm/dL (14.0-18.0); LYMPHOCYTES 5.5 %; MCH 31.4 pg (26.0-34.0); MCHC 34.7 g/dL (28.0-37.0); MCV 90.3 fL (80.0-100.0); MONOCYTES 3.8 %; MPV 9.5 fl. (7.2-11.1); NUCLEATED RBCS 0 /100WBC; PLATELET COUNT* 113 thou/uL (150-400); POLYS 90.6 %; RBC 3.75 mil/uL (4.50-6.00); RDW-CV 16.5 % (10.5-14.5); WBC 9.7 thou/uL (4.0-11.0)
[2019-11-11 04:43] LABS: CALCIUM 7.9 mg/dL (8.5-10.1); CREATININE 1.2 mg/dL (0.6-1.3); POTASSIUM 3.8 mmol/L (3.5-5.1)
[2019-11-11 07:30] VITALS: BP 131/86
[2019-11-11 19:15] VITALS: BP 116/78
[2019-11-12 04:47] LABS: ABSOLUTE MONOCYTES 0.6 thou/uL (0.0-1.2); BASOPHILS 0.3 %; EOSINOPHILS 0.3 %; HEMOGLOBIN 11.4 gm/dL (14.0-18.0); MCH 30.7 pg (26.0-34.0); MCHC 33.6 g/dL (28.0-37.0); MCV 91.2 fL (80.0-100.0); MONOCYTES 6.4 %; MPV 9.6 fl. (7.2-11.1); NUCLEATED RBCS 0 /100WBC; PLATELET COUNT* 108 thou/uL (150-400); RBC 3.73 mil/uL (4.50-6.00); RDW-CV 16.6 % (10.5-14.5); WBC 8.7 thou/uL (4.0-11.0)
[2019-11-12 04:57] LABS: CALCIUM 7.8 mg/dL (8.5-10.1); CREATININE 1.2 mg/dL (0.6-1.3); POTASSIUM 4.1 mmol/L (3.5-5.1)
[2019-11-12 08:27] VITALS: BP 166/80
[2019-11-12] MEDS ORDERED: AUGMENTIN 875-1 EACH PO (10:03)
[2019-11-12 10:23] VITALS: BP 166/80
[2019-11-12 10:33] VITALS: BP 166/80
[2019-11-12 12:58] VITALS: BP 166/80
== END 2019-11-12 12:55 | disposition home or self-care (01) | DRG 371 ==
LOC: M.ERS 08:33 → M.TBA-ER 13:38 → M.ORTHSURG 15:21
PROVIDERS: Personal Emergency Response Attendant; ADMIT Internal Medicine; ATTEND Internal Medicine
DX: A04.9 Bacterial intestinal infection, unspecified (principal); E43 Unspecified severe protein-calorie malnutrition; Z68.1 Body mass index [BMI] 19.9 or less, adult; K86.1 Other chronic pancreatitis; G89.29 Other chronic pain; I10 Essential (primary) hypertension; K31.84 Gastroparesis; F17.210 Nicotine dependence, cigarettes, uncomplicated; Z20.828 Contact with and (suspected) exposure to other viral communicable diseases; F41.9 Anxiety disorder, unspecified; F32.9 Major depressive disorder, single episode, unspecified; Z79.899 Other long term (current) drug therapy; Z85.07 Personal history of malignant neoplasm of pancreas; Z88.5 Allergy status to narcotic agent

== ENCOUNTER → 2020-04-22 | Outpatient (CLI) | payer MEDICARE ==
[~2020-04-22] MED LIST changes: +AUGMENTIN 875-1 EACH PO; +BIOTIN5000 MC1 PO; +MORPHINE SULFAT15 M3 PO; +NEURONTIN300 MG PO; +OXYCONTIN30 MG PO; +PEPCID20 MG PO
== END ==
LOC: M.RAD 08:34
PROVIDERS: ATTEND Internal Medicine Gastroenterology
DX: K31.89 Other diseases of stomach and duodenum (principal); I10 Essential (primary) hypertension; R11.2 Nausea with vomiting, unspecified; Z85.07 Personal history of malignant neoplasm of pancreas; Z79.891 Long term (current) use of opiate analgesic

== ENCOUNTER → 2020-04-25 | Outpatient (CLI) | payer MEDICARE ==
[~2020-04-25] MED LIST changes: -BIOTIN5000 MC1 PO; -MORPHINE SULFAT15 M3 PO; -NEURONTIN300 MG PO; -OXYCONTIN30 MG PO; -PEPCID20 MG PO
== END ==
LOC: M.MRI 07:53
PROVIDERS: ATTEND Internal Medicine Gastroenterology
DX: K86.89 Other specified diseases of pancreas (principal); K83.8 Other specified diseases of biliary tract; R11.2 Nausea with vomiting, unspecified

== ENCOUNTER → 2020-05-16 | Day surgery (SDC) | payer MEDICARE ==
[~2020-05-16] MED LIST changes: +BIOTIN5000 MC1 PO; +MORPHINE SULFAT15 M3 PO; +NEURONTIN300 MG PO; +OXYCONTIN30 MG PO; +PEPCID20 MG PO
--- NOTE | ~2020-05-16 | PROC ---
[address] [address] PROCEDURE REPORT Name: PETER CARRILLO Room: [facility].#: [id number] Admission: 05/16/20 Attend Phys: Fareed Thorne DO Discharge: Date of : 69 Report #: [id number] THIS REPORT FOR: cc: Sunny Petersen Vincent R. DO ~ [facility],Medical Records Staff For GI report, please see the Provation report in Perceptive 7 content. By: [id number] Records Staff SWAPNA /BART
[2020-05-16 10:16] LABS: HEMATOCRIT 40.3 % (42.0-52.0); HEMOGLOBIN 13.6 gm/dL (14.0-18.0); MCH 31.6 pg (26.0-34.0); MCHC 33.7 g/dL (28.0-37.0); MCV 93.9 fL (80.0-100.0); MPV 8.8 fl. (7.2-11.1); RBC 4.3 mil/uL (4.50-6.00); RDW-CV 14.6 % (10.5-14.5); WBC 8.4 thou/uL (4.0-11.0)
[2020-05-16 10:21] LABS: CALCIUM 9.3 mg/dL (8.5-10.1); CREATININE 1.1 mg/dL (0.6-1.3); POTASSIUM 4.6 mmol/L (3.5-5.1)
[2020-05-16 10:28] LABS: ALBUMIN 3.4 g/dL (3.4-5.0); TOTAL BILIRUBIN 0.5 mg/dL (<0.1-1.0); TOTAL PROTEIN 7.5 g/dL (6.4-8.2)
[2020-05-16 10:48] LABS: PROTIME 10.9 Seconds (9.20-11.50)
== END | disposition home or self-care (01) ==
LOC: M.SUR 05:26
PROVIDERS: ATTEND Internal Medicine Gastroenterology
DX: R10.13 Epigastric pain (principal); R11.15 Cyclical vomiting syndrome unrelated to migraine; R93.3 Abnormal findings on diagnostic imaging of other parts of digestive tract; K21.9 Gastro-esophageal reflux disease without esophagitis; F41.9 Anxiety disorder, unspecified; Z98.890 Other specified postprocedural states; Z85.07 Personal history of malignant neoplasm of pancreas; Z79.899 Other long term (current) drug therapy; Z98.0 Intestinal bypass and anastomosis status; Z88.8 Allergy status to other drugs, medicaments and biological substances

== ENCOUNTER 2021-04-19 00:44 | Emergency (ER) | payer MEDICARE ==
[~2021-04-19] VITALS: Ht 160 cm; Wt 46.7 kg
[2021-04-19] MEDS ORDERED: FENTANYL1 EAC1 TRANSDERM (00:57)
[2021-04-19] MEDS ORDERED: DULCOLAX10 MG RECTAL (00:57)
[2021-04-19] MEDS ORDERED: GABAPENTIN250 MG/51 PO (00:58)
[2021-04-19] MEDS ORDERED: NARCAN4 MG NARES (01:00)
[2021-04-19] MEDS ORDERED: NICOTINE PATCH1 EAC2 TRANSDERM (01:01)
[2021-04-19] MEDS ORDERED: PROTONIX40 M3 PO (01:02)
[2021-04-19] MEDS ORDERED: ROXICODONE30 MG PO (01:02)
[2021-04-19] MEDS ORDERED: ACETAMINOPHEN500 M1 PO (01:03)
[2021-04-19] MEDS ORDERED: VENLAFAXINE HCL75 MG PO (01:03)
[2021-04-19 01:37] LABS: HEMATOCRIT 25.5 % (42.0-52.0); HEMOGLOBIN 8.6 gm/dL (14.0-18.0); MCH 30.5 pg (26.0-34.0); MCHC 33.8 g/dL (28.0-37.0); MCV 90.1 fL (80.0-100.0); MPV 10.3 fl. (7.2-11.1); NUCLEATED RBCS 0 /100WBC; PLATELET COUNT* 116 thou/uL (150-400); RBC 2.83 mil/uL (4.50-6.00); RDW-CV 16.9 % (10.5-14.5); WBC 5.7 thou/uL (4.0-11.0)
[2021-04-19 01:46] LABS: CALCIUM 7.8 mg/dL (8.5-10.1); CREATININE 0.7 mg/dL (0.6-1.3); POTASSIUM 4.4 mmol/L (3.5-5.1)
[2021-04-19 01:50] LABS: ALBUMIN 2.1 g/dL (3.4-5.0); MAGNESIUM 2.3 mg/dL (1.8-2.4); PHOSPHORUS* 3.8 mg/dL (2.5-4.9); TOTAL BILIRUBIN 1.1 mg/dL (<0.1-1.0); TOTAL PROTEIN 6.3 g/dL (6.4-8.2)
[2021-04-19 02:10] VITALS: BP 154/89
[2021-04-19 02:52] LABS: ABSOLUTE BASOPHILS 0.1 thou/uL (0.0-0.2); ABSOLUTE EOSINOPHILS 0.1 thou/uL (0.0-0.7); ABSOLUTE LYMPHOCYTES 1.5 thou/uL (0.8-5.3); ABSOLUTE MONOCYTES 0.5 thou/uL (0.0-1.2); ABSOLUTE NEUTROPHILS 3.6 thou/uL (1.6-8.1)
[2021-04-19 02:53] LABS: ANISOCYTOSIS 1+; LARGE PLATELETS OCCASIONAL; PLATELET ESTIMATE DECREASED; POLYCHROMASIA 1+
--- NOTE | 2021-04-19 11:03 | EKG ---
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
== END 2021-04-19 02:10 | disposition home or self-care (01) ==
LOC: M.ERS 00:44
PROVIDERS: Personal Emergency Response Attendant
DX: Z71.1 Person with feared health complaint in whom no diagnosis is made (principal); Z00.01 Encounter for general adult medical examination with abnormal findings; Z85.07 Personal history of malignant neoplasm of pancreas; Z79.891 Long term (current) use of opiate analgesic; Z79.899 Other long term (current) drug therapy; Z88.6 Allergy status to analgesic agent; Z88.8 Allergy status to other drugs, medicaments and biological substances